=== PATIENT | female | born 1940 | race Caucasian/White ===

== ENCOUNTER 2018-10-01 18:38 | Inpatient (IN) | payer OTHER, MEDICAID ==
[~2018-10-01] VITALS: Ht 160 cm; Wt 52.2 kg
--- NOTE | 2018-10-01 18:38 | NUR ---
PT BIBRA81 FROM HOME FOR SOB X 2DAYS; HX OF COPD. GIVEN 3SPRY NITRO MANAGER MEAT FOR HIGH BP, PT IS AAOX2, NOTED RESPIRATORY DISTRESS, CALLED RT AT BEDSIDE FOR BIPAP SET UP, HOOKED TO MONITOR, KEPT RESTED AND COMFORTABLE, WILL CONTINUE TO MONITOR, EKG DONE BY GULLET SLITTER.
[2018-10-01] MEDS ORDERED: Magnesium 1GM/D5W 100ML PREMIX 200 ML IV ONE (18:44)
--- NOTE | 2018-10-01 18:47 | NUR ---
SEEN AND EXAMINED BY DR. JACKSON.
[2018-10-01] MEDS ORDERED: DEXAMETHASONE SOD PHOSPHATE 10 MG/ML VIAL ONE (19:00)
[2018-10-01] MEDS ORDERED: FUROSEMIDE 40 MG/4 ML VIAL ONE (19:00)
[2018-10-01] MEDS ORDERED: DEXAMETHASONE SOD PHOSPHATE 10 MG/ML VIAL IV ONE (19:00)
[2018-10-01] MEDS ORDERED: ASPIRIN 81 MG TAB.CHEW PO ONE (19:00)
[2018-10-01] MEDS ORDERED: IPRATROPIUM NEB FS 0.5 MG/2.5 ML AMPUL.NEB NEB ONE (19:00)
[2018-10-01] MEDS ORDERED: NITROGLYCERIN PACKET 1 GM PACKET TD ONE (19:00)
[2018-10-01] MEDS ORDERED: AZITHROMYCIN 500 MG in IV D5W 250 ML IV ONE (19:00)
[2018-10-01] MEDS ORDERED: FUROSEMIDE 40 MG/4 ML VIAL IV ONE (19:00)
[2018-10-01] MEDS ORDERED: ALBUTEROL FS 2.5 MG/3 ML VIAL.NEB NEB ONE (19:00)
[2018-10-01] MEDS ORDERED: NITROGLYCERIN PACKET 1 GM PACKET ONE (19:01)
[2018-10-01] MEDS ORDERED: Magnesium 1GM/D5W 100ML PREMIX 100 ML IV ONE (19:01)
[2018-10-01] MEDS ORDERED: ASPIRIN 81 MG TAB.CHEW ONE (19:01)
[2018-10-01 19:05] VITALS: BP 200/122
[2018-10-01] MEDS ORDERED: IPRATROPIUM NEB FS 0.5 MG/2.5 ML AMPUL.NEB ONE (19:10)
[2018-10-01] MEDS ORDERED: ALBUTEROL FS 2.5 MG/3 ML VIAL.NEB ONE (19:10)
--- NOTE | 2018-10-01 19:20 | NUR ---
PHLEB AT BEDSIDE FOR BLOOD DRAW.
--- NOTE | 2018-10-01 19:23 | NUR ---
RADIOLOGY AT BEDSIDE FOR XRAY.
[2018-10-01] MEDS ORDERED: DILTIAZEM HCL IV 125 MG in IV NS 0.9% 100 ML IV PRN (19:30)
[2018-10-01] MEDS ORDERED: DILTIAZEM HCL 50 MG IV IV ONE (19:30)
[2018-10-01] MEDS ORDERED: AZITHROMYCIN 500 MG VIAL ONE (19:40)
[2018-10-01 19:41] LABS: BASOPHILS # (AUTO) 0.1 /CMM (0.0-0.2); BASOPHILS % (AUTO) 0.9 % (0.0-2.0); EOSINOPHILS % (AUTO) 0.7 % (0.0-6.0); HEMATOCRIT 42 % (33-45); HEMOGLOBIN 13.2 g/dL (11.5-14.8); LYMPHOCYTES # (AUTO) 1.6 /CMM (0.8-4.8); LYMPHOCYTES % (AUTO) 18.7 % (20.0-44.0); MEAN CORPUSCULAR HGB CONC 31 g/dl (31.0-36.0); MEAN CORPUSCULAR VOLUME 89 fL (82-100); MONOCYTES # (AUTO) 0.4 /CMM (0.1-1.30); MONOCYTES % (AUTO) 4.5 % (2.0-12.0); NEUTROPHILS # (AUTO) 6.5 /CMM (1.8-8.9); NEUTROPHILS % (AUTO) 75.2 % (43.0-81.0); PLATELET COUNT (AUTO) 250 /CMM (150-450); WHITE BLOOD COUNT (AUTO) 8.6 K/uL (4.3-11.0)
--- NOTE | 2018-10-01 19:50 | NUR ---
RECEIVED REPORT FROM FRANCIA WARNER FOR NIECY
--- NOTE | 2018-10-01 19:50 | NUR ---
REPORT GIVEN TO TIMMY FAUST FOR NIECY.
--- NOTE | 2018-10-01 19:50 | NUR ---
URINE SPECIMEN COLLECTED AND SENT TO LAB.
--- NOTE | 2018-10-01 19:51 | NUR ---
FLU SWAB COLLECTED AND SENT TO LAB
--- NOTE | 2018-10-01 19:55 | NUR ---
VITAL SIGNS STABLE. PER VERBAL MD ORDER, HOLD CARDIZEM ORDER.
[2018-10-01] MEDS ORDERED: CEFTRIAXONE 1GM BAG (ER ONLY) 1 GM/50 ML PIGGYBACK IV ONE (20:00)
[2018-10-01 20:02] LABS: APPEARANCE,URINE Clear (CLEAR); BILIRUBIN,URINE Negative (NEGATIVE); BLOOD, URINE Trace-lysed Ery/uL (NEGATIVE); COLOR,URINE Yellow (YELLOW); KETONES,URINE Negative (NEGATIVE); LEUKOCYTE ESTERASE ,URINE Negative (NEGATIVE); NITRITE, URINE Negative (NEGATIVE); PROTEIN,URINE 100 mg/dl (NEGATIVE); UGLUCOSE Negative (NEGATIVE); UROBILINOGEN,URINE 0.2 EU/dL (0.2)
[2018-10-01 20:07] LABS: CALCIUM, SERUM 10.4 mg/dL (8.5-10.1); CARBON DIOXIDE 27 mmol/L (21-32); CHLORIDE 104 mmol/L (98-107); CREATININE 0.8 mg/dL (0.6-1.3); GLUCOSE 279 mg/dL (74-106); POTASSIUM 4.7 mmol/L (3.5-5.1); SODIUM SERUM 140 mmol/L (136-145); UREA NITROGEN, BLOOD 18 mg/dL (7-18)
[2018-10-01 20:12] LABS: BACTERIA,URINE None seen /HPF (None Seen); RBC,URINE 0-2 /HPF (0-2); SQUAMOUS EPITHELIAL CELL,UR None Seen /HPF (None Seen); WBC,URINE 0-2 /HPF (0-3)
[2018-10-01] MEDS ORDERED: DILTIAZEM HCL 50 MG IV ONE (20:16)
--- NOTE | 2018-10-01 20:20 | NUR ---
PT TACHYCARDIC, MD AWARE. PER VERBAL MD ORDER, ADMINISTERED CARDIZEM 10MG IV PUSH X1 NOW
[2018-10-01 20:21] LABS: ALANINE AMINOTRANSFERASE 24 U/L (12-78); ALBUMIN 3.8 g/dL (3.4-5.0); ALKALINE PHOSPHATASE 121 U/L (46-116); ASPARTATE AMINOTRANSFERASE 26 U/L (15-37); B-TYPE NATRIURETIC PEPTIDE 10070 PG/ML (0-125); BILIRUBIN,DIRECT 0.4 mg/dL (0.0-0.2); BILIRUBIN,TOTAL 1.6 mg/dL (0.2-1.0); TOTAL PROTEIN, SERUM 8.2 g/dL (6.4-8.2)
[2018-10-01] MEDS ORDERED: IV NS 0.9% 500 ML BAG IV ONE (20:30)
--- NOTE | 2018-10-01 20:31 | NUR ---
DAUGHTER CONTACT INFORMATION: RAMIN . ATTEMPTED TO CONTACT, NO ANSWER. MAILBOX FULL. WILL FOLLOW UP
[2018-10-01] MEDS ORDERED: CEFTRIAXONE 1GM BAG (ER ONLY) 50 ML IV ONE (20:49)
--- NOTE | 2018-10-01 20:58 | NUR ---
PT REFUSED ABG BLOOD DRAW, AWARE
[2018-10-01 21:08] VITALS: BP 126/85
--- NOTE | 2018-10-01 21:39 | NUR ---
GAVE REPORT TO VINCENT WARNER FOR NIECY
--- NOTE | 2018-10-01 21:50 | NUR ---
TRANSFERRED PT PER ACLS PROTOCOL
[2018-10-01] MEDS ORDERED: ONDANSETRON HCL/PF 4 MG/2 ML VIAL IVP PRN (22:00)
[2018-10-01] MEDS ORDERED: Z GUARD REMEDY 2 OZ OINT TP PRN (22:00)
[2018-10-01] MEDS ORDERED: ZOLPIDEM TARTRATE 5 MG TABLET PO PRN (22:00)
[2018-10-01] MEDS ORDERED: MAGNESIUM HYDROXIDE 30 ML UDC PO PRN (22:00)
[2018-10-01] MEDS ORDERED: MAG HYDROX/AL HYDROX/SIMETH 30 ML UDC PO PRN (22:00)
[2018-10-01] MEDS ORDERED: HYDROCODONE/APAP 5/325MG 1 EACH TABLET PO PRN (22:00)
[2018-10-01] MEDS ORDERED: ENOXAPARIN SODIUM 40 MG/0.4 ML DISP.SYRIN SQ SCH ×2 (22:00→23:03)
[2018-10-01] MEDS ORDERED: DILTIAZEM HCL 25 MG IV ONE (22:29)
--- NOTE | 2018-10-01 22:45 | NUR ---
RN NOTES PT REFUSED CARDIZEM IV DRIP BC SHE PREFERS PO CARDIZEM PER HER CARDIOLOGISTS. PT BECAME AGITATED W CHARGE NURSE WHEN HE ATTEMPTED TO EXPLAIN THE IMPORTANCE OF THE MEDICATION.
--- NOTE | 2018-10-01 22:52 | NUR ---
POWER CRANE OPERATOR NOTES PT RECEIVED FROM ED W SOB. AOX3. AFIB NOTED ON PORTABLE TRACK LINE MARKER. SALINE LOCKED 20G IV R HAND AND IV BOLUS RUNNING VIA 20G IV L AC. BATH, SKIN ASSESSMENT, AND PICTURES WERE COMPLETED. PT ORIENTED TO ROOM AND PLAN OF CARE. PROVIDED 2L NC.WILL CONTINUE TO MONITOR.
--- NOTE | 2018-10-01 23:20 | NUR ---
RN NOTES LOVENOX WAS GIVEN ORDERED, HOWEVER WE WERE UNABLE TO SCAN BC IT WAS ADMINISTERED AFTER PRESCRIBED TIME. PERMISSION WAS GIVEN BY CHARGE NURSE ED TO ADMINISTER MEDICATION.
[2018-10-01 23:30] VITALS: BP 130/77
[2018-10-01] MEDS ORDERED: IPRATROPIUM NEB FS 0.5 MG/2.5 ML AMPUL.NEB NEB PRN (23:30)
[2018-10-01] MEDS ORDERED: ALBUTEROL FS 2.5 MG/3 ML VIAL.NEB NEB PRN (23:30)
[2018-10-02] VITALS (36 sets, daily range): BP systolic 115–164; BP diastolic 43–102
[2018-10-02 04:46] LABS: BASOPHILS % (AUTO) 0.1 % (0.0-2.0); HEMATOCRIT 36 % (33-45); HEMOGLOBIN 11.5 g/dL (11.5-14.8); LYMPHOCYTES # (AUTO) 0.5 /CMM (0.8-4.8); LYMPHOCYTES % (AUTO) 8.1 % (20.0-44.0); MEAN CORPUSCULAR HGB CONC 32 g/dl (31.0-36.0); MEAN CORPUSCULAR VOLUME 86 fL (82-100); MONOCYTES # (AUTO) 0.1 /CMM (0.1-1.30); MONOCYTES % (AUTO) 1.9 % (2.0-12.0); NEUTROPHILS # (AUTO) 5.9 /CMM (1.8-8.9); NEUTROPHILS % (AUTO) 89.9 % (43.0-81.0); PLATELET COUNT (AUTO) 178 /CMM (150-450); RED BLOOD CELL COUNT(AUTO) 4.13 MIL/uL (4.0-5.2); WHITE BLOOD COUNT (AUTO) 6.5 K/uL (4.3-11.0)
[2018-10-02 05:01] LABS: CALCIUM, SERUM 9.7 mg/dL (8.5-10.1); CARBON DIOXIDE 29 mmol/L (21-32); CHLORIDE 102 mmol/L (98-107); CREATININE 0.7 mg/dL (0.6-1.3); GLUCOSE 215 mg/dL (74-106); MAGNESIUM 1.9 mg/dL (1.8-2.4); PHOSPHORUS 3.1 mg/dL (2.5-4.9); POTASSIUM 3.8 mmol/L (3.5-5.1); SODIUM SERUM 140 mmol/L (136-145); UREA NITROGEN, BLOOD 15 mg/dL (7-18)
[2018-10-02 05:11] LABS: CHOLESTEROL 138 mg/dL (<200); HDL CHOLESTEROL 69 mg/dL (40-60); LDL 68 mg/dL (0-99); THYROID STIMULATING HORMONE 0.304 uIU/mL (0.358-3.74); TRIGLYCERIDES 31 mg/dL (30-150)
--- NOTE | 2018-10-02 06:15 | NUR ---
RN CLOSING NOTES NO SIGNIFICANT CHANGE IN PTS CONDITION. PT REMAINED IN A-FIB OVER NIGHT, SOB IMPROVED. PT REFUSED BIPAP AND CARDIZEM DRIP. ALL NEEDS ANTICIPATED AND MET. PT KEPT SAFE . WILL ENDORSE TO AM RN.
--- NOTE | 2018-10-02 07:30 | NUR ---
RECEIVED CARE OF PATIENT. AWAKE ALERT X3. NO NOTED S/S DISTRESS. STATES BREATHING HAS IMPROVED BUT STILL DIFFICULT FOR HER TO COMPLETE ACTIVITIES. TOLERATING NASAL CANNULA 2L. IV SITES C/D/I/P. PER RN PATIENT REFUSING CARDIZEM GTT; PENDING DR PEOPLES CONSULT. BP STABLE. ALL NEEDS IN REACH. TELE AFIB 90'S-LOW 120'S WITH ACTIVITY. SAFETY, SKIN, ASPIRATION PRECAUTIONS IN PLACE AND WILL MONITOR.
--- NOTE | 2018-10-02 07:48 | NUR ---
DR OCHOA AT BEDSIDE. AWARE PATIENT REFUSAL FOR CARDIZEM IV, CURRENT VS, AND HR 90'S-120'S AFIB. PATIENT STATES SOB IMPROVED BUT STILL HAVING SLIGHT DIFFICULTY WITH ACTIVITY. O2 SAT STABLE ON RA. PER DR DON GALVEZ FOR CARDIAC DIET.
[2018-10-02] MEDS: POTASSIUM CHLORIDE 20 MEQ TAB.PRT.SR PO SCH ×3 (08:32→11:00)
[2018-10-02] MEDS: NITROGLYCERIN PACKET 1 GM PACKET TOP SCH ×2 (08:33→18:33)
[2018-10-02] MEDS: FUROSEMIDE 40 MG/4 ML VIAL IV SCH ×3 (08:33→16:59)
[2018-10-02] MEDS: PANTOPRAZOLE 40 MG TABLET.DR PO SCH (08:53)
[2018-10-02] MEDS ORDERED: ASPIRIN EC 81 MG TABLET.DR PO SCH (09:00)
[2018-10-02] MEDS ORDERED: PANTOPRAZOLE 40 MG VIAL IV SCH (09:00)
--- NOTE | 2018-10-02 10:55 | NUR ---
dr chavira at bedside.
[2018-10-02] MEDS: DIGOXIN INJ 0.5 MG/2 ML AMPUL IV SCH ×3 (11:01→23:51)
--- NOTE | 2018-10-02 11:25 | NUR ---
PT REFUSED ABG. NO RESP. DISTRESS NOTED. PT IS ON 2LPM NASAL CANNULA. AT THE TIME SHE REFUSED THE ABG SHE DID NOT HAVE THE CANNULA ON AND WAS SATURATING 92-95% ON ROOM AIR. TIMMY CASSIDY AWARE OF PT REFUSAL.
[2018-10-02] MEDS: ACETAMINOPHEN 325 MG TABLET PO PRN ×2 (11:46→21:39)
[2018-10-02] MEDS: LACTOBACILLUS RHAMNOSUS GG 1 EACH CAP.SPRINK PO SCH (16:59)
[2018-10-02] MEDS: RIVAROXABAN 10 MG TABLET PO SCH (17:00)
--- NOTE | 2018-10-02 18:37 | NUR ---
PATIENT NOW ALLOWING OFFLOADING OF SACRUM WITH PILLOWS. MEPILEX APPLIED ON SACRUM FOR PROTECTION. PATIENT URINATING APPROX EVERY HOUR AND CONTINUING TO HAVE SKIN AND DERRICK CARE COMPLETED. PER PATIENT REQUEST CALLED DAUGHTER HAYLEE FOR UPDATE ON HER CONDITION. [phone] BUT NO OPTION FOR VOICEMAIL PATIENT AWARE. EDUCATED PATIENT ON SKIN CARE AND IMPORTANCE OF TURNING AND OFFLOADING
--- NOTE | 2018-10-02 18:42 | NUR ---
ALL DUE MEDS GIVEN AND ALL NEEDS MET. PATIENT DENIES SOB NO DIFFICULTY BREATHING AND NO NOTED DISTRESS. ON ROOM AIR O2 SAT STABLE. PATIENT AT TIMES REFUSING TURNING AND OFFLOADING OF SCARUM AND EDUCATED AND STATES UNDERSTANDING. MEPILEX FOR PROTECTION ON SACRUM. CONTINUING FREQUENT SKIN CARE AND DIAPER CHANGE S/T INCREASED URINATION WITH LASIX. PENDING PODIATRY CONSULT TOMORROW PER DR SARABIA S/T TOENAIL GROWTH. SAFETY, SKIN, ASPIRATION PRECAUTIONS IN PLACE AND MONITORED.
[2018-10-02] MEDS ORDERED: AZITHROMYCIN 500 MG in IV D5W 250 ML IV SCH (19:00)
--- NOTE | 2018-10-02 19:45 | NUR ---
LEFT AC 20G IV INFILTRATED AND REMOVED, RIGHT WRIST 20G IV PAINFUL, PT IS REFUSING ALL IV MEDICATIONS AT THIS TIME, SHE SAYS SHE DOES NOT WANT THE IV ANTIBIOTICS
[2018-10-02] MEDS ORDERED: CEFTRIAXONE 1 G in IV D5W 50 ML IV SCH (20:00)
[2018-10-03] VITALS (14 sets, daily range): BP systolic 111–156; BP diastolic 63–94
[2018-10-03 05:02] LABS: BASOPHILS % (AUTO) 0.4 % (0.0-2.0); HEMATOCRIT 37 % (33-45); LYMPHOCYTES # (AUTO) 2.2 /CMM (0.8-4.8); LYMPHOCYTES % (AUTO) 28.4 % (20.0-44.0); MEAN CORPUSCULAR HGB CONC 32 g/dl (31.0-36.0); MEAN CORPUSCULAR VOLUME 87 fL (82-100); MONOCYTES # (AUTO) 0.7 /CMM (0.1-1.30); MONOCYTES % (AUTO) 8.5 % (2.0-12.0); NEUTROPHILS # (AUTO) 4.8 /CMM (1.8-8.9); NEUTROPHILS % (AUTO) 61.7 % (43.0-81.0); PLATELET COUNT (AUTO) 205 /CMM (150-450); WHITE BLOOD COUNT (AUTO) 7.8 K/uL (4.3-11.0)
[2018-10-03 05:16] LABS: ALANINE AMINOTRANSFERASE 22 U/L (12-78); ALBUMIN 3.1 g/dL (3.4-5.0); ALKALINE PHOSPHATASE 88 U/L (46-116); ASPARTATE AMINOTRANSFERASE 18 U/L (15-37); BILIRUBIN,TOTAL 0.9 mg/dL (0.2-1.0); CALCIUM, SERUM 9.7 mg/dL (8.5-10.1); CARBON DIOXIDE 31 mmol/L (21-32); CHLORIDE 104 mmol/L (98-107); CREATININE 0.7 mg/dL (0.6-1.3); GLUCOSE 110 mg/dL (74-106); PHOSPHORUS 3.6 mg/dL (2.5-4.9); POTASSIUM 4.3 mmol/L (3.5-5.1); SODIUM SERUM 141 mmol/L (136-145); UREA NITROGEN, BLOOD 27 mg/dL (7-18)
[2018-10-03] MEDS: NITROGLYCERIN PACKET 1 GM PACKET TOP SCH (06:58)
--- NOTE | 2018-10-03 07:35 | NUR ---
ICU/RN: Dr Jacques at bedside; updated on pt status, informed of pt non-compliance; pt refuses to take IV meds, insert new IV. Currently a-fib 120's on monitor. Per okay to downgrade to med/surg.
[2018-10-03] MEDS: DILTIAZEM HCL CD 240 MG PO SCH (08:14)
[2018-10-03] MEDS: LACTOBACILLUS RHAMNOSUS GG 1 EACH CAP.SPRINK PO SCH ×2 (08:14→16:16)
[2018-10-03] MEDS: FUROSEMIDE 20 MG TABLET PO SCH (08:14)
[2018-10-03] MEDS: PANTOPRAZOLE 40 MG TABLET.DR PO SCH (08:14)
--- NOTE | 2018-10-03 08:40 | NUR ---
WOUND CARE CONSULT: PT PRESENTS WITH SACRAL SCARRING, RT INDEX FINGER DEFORMITY, RT 3RD FINGER INTACT BLISTER AND SCALY SKIN ON LOWER LEGS, PRESENT ON ADMISSION. PT NOTED TO HAVE LONG TOENAILS. PT STATES THAT A SENIOR CLIMATE ADVISOR IS COMING TO SEE HER IN 2 HOURS. PT REPORTS THAT SHE BURNED HER RT 3RD FINGER WHILE MAKING TOAST IN HER OVEN AT HOME. PT STATES THAT BLISTER IS NOT PAINFUL. RECOMMENDATIONS MADE FOR WOUND CARE AND SKIN PROTECTION. DISCUSSED WITH NURSING STAFF. CURRENT SIMEON SCORE IS 17. WILL SEE PRN. JENNINGS IN AGREEMENT WITH PLAN OF CARE. Addendum: 10/03/18 at 0843 by RAMA VILLEGAS WNDNU Amended: Links added.
[2018-10-03] MEDS ORDERED: MINERAL OIL/PETROLATUM,WHITE 120 GM JAR TP PRN (09:00)
--- NOTE | 2018-10-03 10:28 | NUR ---
ICU/RN: Called med/surg for report, spoke with TIMMY Jensen.
--- NOTE | 2018-10-03 10:45 | NUR ---
ICU/RN: Pt transferred to med/surg 2 in stable condition, breathing even and unlabored, no distress noted. IV HL patent and intact. Dressing on R index finger C/D/I. Belongings and chart transferred with patient. Received at bedside by primary RN.
--- NOTE | 2018-10-03 11:00 | NUR ---
MS RN NOTES PATIENT TRANSFERRED FROM ICU, RM 253, REPORT RECEIVED FROM TIMMY TAVARES. PATIENT ARRIVED VIA WHEELCHAIR IN STABLE CONDITION. ALERT AND ORIENTED X 4, VERBALLY RESPONSIVE AND RESPONDS TO VERBAL AND TACTILE STIMULI. NO ACUTE DISTRESS. DENIES ANY PAIN OR DISCOMFORT. NO CHANGES IN LOC NOTED AT THIS TIME. DRESSING RIGHT FINGER INTACT, NO DRAINAGE OR BLEEDING NOTED. PATIENT ORIENTED TO UNIT, STAFF, PHYSICIAN, PLAN OF CARE AND VERBALIZED UNDERSTANDING. DR. SARABIA AWARE. WILL CONTINUE TO MONITOR
[2018-10-03] MEDS ORDERED: GUAIFENESIN/D-METHORPHAN HB 5 ML UDC PO PRN (12:00)
--- NOTE | 2018-10-03 12:30 | NUR ---
MS RN NOTES PATIENT SEEN AND EXAMINED BY DR. DOMENICA SOTO. WOUND TX DONE ON RIGHT 3RD FINGER, PATIENT TOLERATED PROCEDURE WELL. DENIES ANY PAIN OR DISCOMFORT. PLACED XEROFORM THEN COVERED SITE WITH DRY DRESSING. NO DRAINAGE OR BLEEDING NOTED. WILL CONTINUE TO MONITOR
[2018-10-03] MEDS: GUAIFENESIN LA 600 MG TABLET.SA PO SCH ×2 (12:32→21:00)
--- NOTE | 2018-10-03 13:20 | NUR ---
MS RN NOTES DR. CALIX (PODIATRY) PRESENT AT UNIT TO SEE PATIENT BUT PATIENT REFUSED. STATED SHE WOULD PREFER TO HAVE DR. CALIX COME BACK TOMORROW. RISKS AND BENEFITS EXPLAINED BUT TO NO AVAIL. PATIENT STRONGLY INSISTED TO NOT BE SEEN TODAY. WILL CONTINUE TO MONITOR
[2018-10-03] MEDS: RIVAROXABAN 10 MG TABLET PO SCH (16:16)
--- NOTE | 2018-10-03 18:56 | NUR ---
MS RN NOTES PATIENT RESTING INSIDE ROOM. AWAKE, ALERT AND ORIENTED, VERBALLY RESPONSIVE AND RESPONDS TO VERBAL AND TACTILE STIMULI. BREATHING EVEN AND UNLABORED. NO ACUTE DISTRESS AT THIS TIME. ALL NURSING NEEDS ATTENDED AND MET. PATIENT KEPT CLEAN, DRY AND COMFORTABLE. WILL ENDORSE TO INCOMING SHIFT FOR NIECY. BED LOCKED AND IN LOW POSITION. BILATERAL UPPER SIDE RAILS UP AND LOCKED. CALL LIGHT WITHIN EASY REACH
--- NOTE | 2018-10-03 19:40 | NUR ---
RN NOTES RECEIVED REPORT FROM [facility] TIMMY DURON. FOUND Pt AWAKE, RESTING IN BED. Pt IS A/OX4, VERBAL ABLE TO MAKE NEEDS KNOWN. NO S/S OF ACUTE DISTRESS OR SOB NOTED. RESPIRATIONS ARE EVEN AND UNLABORED. IV ACCESS ON R WRIST #20G, SL. SAFETY MEASURES IN PLACE. BED LOW, LOCKED, HOB ELEVATED, SIDE RAILS UP, CALL LIGHT AND BEDSIDE TABLE WITHIN REACH. WILL CONTINUE TO MONITOR Pt's CONDITION AND SAFETY THROUGHOUT THE NIGHT.
[2018-10-04 06:19] LABS: BASOPHILS # (AUTO) 0.1 /CMM (0.0-0.2); BASOPHILS % (AUTO) 0.7 % (0.0-2.0); EOSINOPHILS % (AUTO) 3.4 % (0.0-6.0); HEMATOCRIT 38 % (33-45); HEMOGLOBIN 12.1 g/dL (11.5-14.8); LYMPHOCYTES # (AUTO) 1.8 /CMM (0.8-4.8); LYMPHOCYTES % (AUTO) 22.9 % (20.0-44.0); MEAN CORPUSCULAR HGB CONC 32 g/dl (31.0-36.0); MEAN CORPUSCULAR VOLUME 88 fL (82-100); MONOCYTES # (AUTO) 0.6 /CMM (0.1-1.30); MONOCYTES % (AUTO) 7.6 % (2.0-12.0); NEUTROPHILS # (AUTO) 5.3 /CMM (1.8-8.9); NEUTROPHILS % (AUTO) 65.4 % (43.0-81.0); PLATELET COUNT (AUTO) 236 /CMM (150-450); RED BLOOD CELL COUNT(AUTO) 4.34 MIL/uL (4.0-5.2); WHITE BLOOD COUNT (AUTO) 8.1 K/uL (4.3-11.0)
[2018-10-04] MEDS: ACETAMINOPHEN 325 MG TABLET PO PRN ×2 (06:34→15:01)
[2018-10-04 06:44] LABS: ALANINE AMINOTRANSFERASE 22 U/L (12-78); ALKALINE PHOSPHATASE 89 U/L (46-116); ASPARTATE AMINOTRANSFERASE 21 U/L (15-37); BILIRUBIN,TOTAL 0.6 mg/dL (0.2-1.0); CALCIUM, SERUM 9.5 mg/dL (8.5-10.1); CARBON DIOXIDE 28 mmol/L (21-32); CHLORIDE 105 mmol/L (98-107); CREATININE 0.5 mg/dL (0.6-1.3); GLUCOSE 135 mg/dL (74-106); PHOSPHORUS 3.2 mg/dL (2.5-4.9); POTASSIUM 3.8 mmol/L (3.5-5.1); SODIUM SERUM 141 mmol/L (136-145); TOTAL PROTEIN, SERUM 6.6 g/dL (6.4-8.2); UREA NITROGEN, BLOOD 21 mg/dL (7-18)
--- NOTE | 2018-10-04 06:45 | NUR ---
RN CLOSING NOTES NO SIGNIFICANT CHANGES IN Pt's CONDITION. Pt REMAINS STABLE AT THIS TIME. Pt AWAKE, RESTING IN BED, WATCHING TV. RESPIRATIONS EVEN AND UNLABORED. NO S/S OF ACUTE DISTRESS OR SOB NOTED DURING THE NIGHT. ALL NEEDS MET AND ATTENDED TO. SAFETY MEASURES IN PLACE. BED LOW, LOCKED, HOB ELEVATED, SIDE RAILS UP, CALL LIGHT AND BEDSIDE TABLE WITHIN REACH. WILL ENDORSE TO DAYSHIFT RN FOR Pt's NIECY.
[2018-10-04 08:00] VITALS: BP 116/74
--- NOTE | 2018-10-04 08:00 | NUR ---
MS RN AM NOTES PT ALERT AND ORIENTED X 4, VERBALLY RESPONSIVE AND RESPONDS TO VERBAL AND TACTILE STIMULI. NO ACUTE DISTRESS. DENIES ANY PAIN OR DISCOMFORT.PT AMBULATING IN THE HALLWAY WITH STEADY GAIT BY HERSELF SEVERAL TIMES. NO CHANGES IN LOC.NO SOB ON ROOM AIR -WITH O2 SAT 99%.DRESSING RIGHT FINGER INTACT, NO DRAINAGE OR BLEEDING NOTED. PATIENT VERBALIZES NEEDS. NEEDS ATTENDED ALWAYS.WILL CONTINUE TO MONITOR.CALL LIGHT PLACED WITHIN REACH.
[2018-10-04] MEDS: LACTOBACILLUS RHAMNOSUS GG 1 EACH CAP.SPRINK PO SCH ×2 (09:00→17:13)
[2018-10-04] MEDS: PANTOPRAZOLE 40 MG TABLET.DR PO SCH (09:01)
[2018-10-04] MEDS: DILTIAZEM HCL CD 240 MG PO SCH (09:01)
[2018-10-04] MEDS: GUAIFENESIN LA 600 MG TABLET.SA PO SCH ×2 (09:01→20:51)
[2018-10-04] MEDS: FUROSEMIDE 20 MG TABLET PO SCH (09:01)
--- NOTE | 2018-10-04 10:00 | NUR ---
PT AMBULATED WITH P.T. WITH 97% O2 SAT ROOM AIR DENYING ANY SOB/DISTRESS/DISCOMFORT.
--- NOTE | 2018-10-04 14:55 | NUR ---
SEEN BY DR HOWARD (PODIATRY) AND TRIMMED PT'S TOENAILS.PT TOLERATED WELL.SKIN REMAINS INTACT.
[2018-10-04 16:00] VITALS: BP 144/95
[2018-10-04] MEDS: RIVAROXABAN 10 MG TABLET PO SCH (17:14)
--- NOTE | 2018-10-04 19:13 | NUR ---
PT IN BED AMBULATING IN THE HALLWAY-IN AND OUT OF HER ROOM WITH NO C/O SOB.O2 SAT 97% ON ROOM AIR.WITH GOOD APPETITE FOR SNACKS.CONSUMED 4 JELLOS AND SNACKS.CALL LIGHT PLACED WITHIN REACH.
--- NOTE | 2018-10-04 19:15 | NUR ---
MS RN NOTE RECEIVED PT IN STABLE CONDITION A&O X4, ABLE TO MAKE NEEDS KNOWN. PT WITH STABLE GAIT. ALL CURRENT NEEDS MET. SAFETY MEASURES IN PLACE: BED LOW, LOCKED, UPPER RAILS UP, AND CALL LIGHT WITHIN REACH. WILL CONT TO MONITOR.
[2018-10-04 20:00] VITALS: BP 122/69
--- NOTE | 2018-10-05 06:22 | NUR ---
MS RN NOTE PT IN STABLE CONDITION A&O X4, ABLE TO MAKE NEEDS KNOWN. PT WITH STABLE GAIT. ALL CURRENT NEEDS MET. SAFETY MEASURES IN PLACE: BED LOW, LOCKED, UPPER RAILS UP, AND CALL LIGHT WITHIN REACH. WILL CONT TO MONITOR AND ENDORSE TO NEXT SHIFT FOR NIECY.
[2018-10-05 07:28] LABS: CALCIUM, SERUM 9.8 mg/dL (8.5-10.1); CARBON DIOXIDE 29 mmol/L (21-32); CHLORIDE 106 mmol/L (98-107); CREATININE 0.6 mg/dL (0.6-1.3); GLUCOSE 114 mg/dL (74-106); MAGNESIUM 2.1 mg/dL (1.8-2.4); PHOSPHORUS 3.1 mg/dL (2.5-4.9); POTASSIUM 3.9 mmol/L (3.5-5.1); SODIUM SERUM 143 mmol/L (136-145); UREA NITROGEN, BLOOD 18 mg/dL (7-18)
[2018-10-05 07:38] LABS: BASOPHILS % (AUTO) 0.4 % (0.0-2.0); EOSINOPHILS % (AUTO) 4.7 % (0.0-6.0); HEMATOCRIT 39 % (33-45); HEMOGLOBIN 12.4 g/dL (11.5-14.8); LYMPHOCYTES # (AUTO) 2.3 /CMM (0.8-4.8); LYMPHOCYTES % (AUTO) 34.1 % (20.0-44.0); MEAN CORPUSCULAR HGB CONC 32 g/dl (31.0-36.0); MEAN CORPUSCULAR VOLUME 87 fL (82-100); MONOCYTES # (AUTO) 0.6 /CMM (0.1-1.30); MONOCYTES % (AUTO) 8.4 % (2.0-12.0); NEUTROPHILS # (AUTO) 3.6 /CMM (1.8-8.9); NEUTROPHILS % (AUTO) 52.4 % (43.0-81.0); PLATELET COUNT (AUTO) 269 /CMM (150-450); RED BLOOD CELL COUNT(AUTO) 4.48 MIL/uL (4.0-5.2); WHITE BLOOD COUNT (AUTO) 6.9 K/uL (4.3-11.0)
[2018-10-05 08:00] VITALS: BP 121/78
[2018-10-05 08:49] VITALS: BP 121/78
[2018-10-05] MEDS: LACTOBACILLUS RHAMNOSUS GG 1 EACH CAP.SPRINK PO SCH (08:49)
[2018-10-05] MEDS: DILTIAZEM HCL CD 240 MG PO SCH (08:49)
[2018-10-05] MEDS: GUAIFENESIN LA 600 MG TABLET.SA PO SCH (08:49)
[2018-10-05] MEDS: ACETAMINOPHEN 325 MG TABLET PO PRN (08:49)
[2018-10-05] MEDS: PANTOPRAZOLE 40 MG TABLET.DR PO SCH (08:50)
[2018-10-05] MEDS ORDERED: FUROSEMIDE 20 MG TABLET PO SCH (09:00)
[2018-10-05] MEDS ORDERED: DILT240C88 PO (09:56)
[2018-10-05] MEDS ORDERED: RIVA10TA PO (09:56)
[2018-10-05] MEDS ORDERED: FURO20TA4 PO (09:56)
--- NOTE | 2018-10-05 15:30 | NUR ---
DISCHARGED PT HOME VIA TAXI VOUCHER.WITH STABLE V/S.IV H/L REMOVED TO RT WRIST WITH NO BLEEDING NOTED.DENIES SOB OR DISCOMFORT.INFORMED PT'S DAUGHTER OF THE DISCHARGE.
== END 2018-10-05 15:30 | disposition home or self-care (01) | DRG 871 ==
LOC: ER 18:43 → ICU 21:18 → MEDSG2 10-03 10:38
PROVIDERS: ADMIT Hospitalist; ATTEND Student in an Organized Health Care Education/Training Program
PROC: 5A09357 Assistance with Respiratory Ventilation, Less than 24 Consecutive Hours, Continuous Positive Airway Pressure (ICD-10-PCS; principal; 2018-10-01)
DX: A41.9 Sepsis, unspecified organism (principal); J96.01 Acute respiratory failure with hypoxia; I21.A1 Myocardial infarction type 2; I50.43 Acute on chronic combined systolic (congestive) and diastolic (congestive) heart failure; J44.1 Chronic obstructive pulmonary disease with (acute) exacerbation; F17.210 Nicotine dependence, cigarettes, uncomplicated; L60.1 Onycholysis; L60.3 Nail dystrophy; L85.3 Xerosis cutis; Z91.14 Patient's other noncompliance with medication regimen; J84.10 Pulmonary fibrosis, unspecified; I11.0 Hypertensive heart disease with heart failure; Z71.6 Tobacco abuse counseling; L98.8 Other specified disorders of the skin and subcutaneous tissue; S60.422A Blister (nonthermal) of right middle finger, initial encounter; X08.8XXA Exposure to other specified smoke, fire and flames, initial encounter; Y93.9 Activity, unspecified; Y92.009 Unspecified place in unspecified non-institutional (private) residence as the place of occurrence of the external cause; I48.91 Unspecified atrial fibrillation; R65.20 Severe sepsis without septic shock
CPT/HCPCS: 36415; 71045-TC; 71250-TC; 80048-TC; 80053-TC; 80061-TC; 80076-TC; 81000-TC; 82962-TC; 83605-TC; 83735-TC; 83880; 84100-TC; 84439-TC; 84443-TC; 84484-TC; 85025-TC; 85730-TC; 87040-TC; 87081-TC; 87086-TC; 87400; 93307-TC; 94799-TC; A6402; G0378; J0456; J0696; J1100; J1160; J1650; J1940; J3475; J3490; J7040; J7050; J7060

== ENCOUNTER 2018-12-28 06:04 | Inpatient (IN) | payer OTHER, MEDICAID ==
[~2018-12-28] VITALS: Ht 157.5 cm; Wt 54.9 kg
[~2018-12-28 06:04] MED LIST: DILT240C88 PO; FURO20TA4 PO; RIVA10TA PO
--- NOTE | 2018-12-28 06:08 | NUR ---
VICKI RA FROM HOME. AAOX4. AMBULATORY WITH ASSISTANCE. C/O SOB X 1 WEEK WHICH STARTED TO GOT WORST SINCE YESTERDAY PER PT. LUNG SOUNDS ARE CLEAR. NO N/V. DENIES CP. PT TO ER BED 2. PLACED ON MONITOR, NOTED PT ON AFIB. MD AT BEDSIDE. AWAITING FOR ORDERS.
--- NOTE | 2018-12-28 06:10 | NUR ---
PLACE ON 02 VIA NC @ 2LPM.
--- NOTE | 2018-12-28 06:15 | NUR ---
IV LINE OBTAINED ON L AC 20G. BLOOD DRAWN SENT TO LAB
--- NOTE | 2018-12-28 06:20 | NUR ---
TECH AT BEDSIDE FOR EKG
--- NOTE | 2018-12-28 06:22 | NUR ---
XRAY AT BEDSIDE
[2018-12-28] MEDS ORDERED: ASPIRIN 81 MG TAB.CHEW PO ONE (06:30)
[2018-12-28] MEDS ORDERED: NITROGLYCERIN PACKET 1 GM PACKET TD ONE (06:30)
[2018-12-28] MEDS ORDERED: FUROSEMIDE 40 MG/4 ML VIAL IV ONE (06:30)
[2018-12-28 06:39] LABS: BASOPHILS # (AUTO) 0.1 /CMM (0.0-0.2); BASOPHILS % (AUTO) 1.2 % (0.0-2.0); HEMATOCRIT 43 % (33-45); HEMOGLOBIN 13.6 g/dL (11.5-14.8); LYMPHOCYTES # (AUTO) 1.9 /CMM (0.8-4.8); LYMPHOCYTES % (AUTO) 32.2 % (20.0-44.0); MEAN CORPUSCULAR HGB CONC 32 g/dl (31.0-36.0); MEAN CORPUSCULAR VOLUME 86 fL (82-100); MONOCYTES # (AUTO) 0.3 /CMM (0.1-1.30); MONOCYTES % (AUTO) 5.5 % (2.0-12.0); NEUTROPHILS # (AUTO) 3.5 /CMM (1.8-8.9); NEUTROPHILS % (AUTO) 57.1 % (43.0-81.0); PLATELET COUNT (AUTO) 253 /CMM (150-450); RED BLOOD CELL COUNT(AUTO) 4.95 MIL/uL (4.0-5.2); WHITE BLOOD COUNT (AUTO) 6.1 K/uL (4.3-11.0)
[2018-12-28 07:08] LABS: ALANINE AMINOTRANSFERASE 21 U/L (12-78); ALBUMIN 3.9 g/dL (3.4-5.0); ALKALINE PHOSPHATASE 103 U/L (46-116); ASPARTATE AMINOTRANSFERASE 25 U/L (15-37); B-TYPE NATRIURETIC PEPTIDE 9294 PG/ML (0-125); BILIRUBIN,DIRECT 0.3 mg/dL (0.0-0.2); BILIRUBIN,TOTAL 1.9 mg/dL (0.2-1.0); CALCIUM, SERUM 9.9 mg/dL (8.5-10.1); CARBON DIOXIDE 28 mmol/L (21-32); CHLORIDE 104 mmol/L (98-107); CREATININE 0.6 mg/dL (0.6-1.3); GLUCOSE 161 mg/dL (74-106); POTASSIUM 4.1 mmol/L (3.5-5.1); SODIUM SERUM 140 mmol/L (136-145); TOTAL PROTEIN, SERUM 7.5 g/dL (6.4-8.2); UREA NITROGEN, BLOOD 20 mg/dL (7-18)
--- NOTE | 2018-12-28 08:29 | NUR ---
report given to Franci WARNER for niels.
[2018-12-28] MEDS ORDERED: FUROSEMIDE 20 MG TABLET PO SCH (09:00)
[2018-12-28] MEDS ORDERED: FUROSEMIDE 40 MG/4 ML VIAL IV SCH (09:00)
[2018-12-28] MEDS ORDERED: ASPI-1169 PO (09:54)
[2018-12-28] MEDS ORDERED: FAMO20TA8 PO (09:54)
[2018-12-28] MEDS ORDERED: CARV12.52 PO (09:54)
[2018-12-28] MEDS ORDERED: TRIA80OI TP (09:54)
[2018-12-28] MEDS ORDERED: DIGO125T PO (09:54)
[2018-12-28] MEDS ORDERED: LISI2.5T2 PO (09:54)
[2018-12-28] MEDS ORDERED: ACET-73 PO (09:54)
--- NOTE | 2018-12-28 11:09 | NUR ---
wheeled patient via gurney accompanied by EMT and rn in no apparent distress noted, Melisa RN at bedside to assume care.
--- NOTE | 2018-12-28 11:10 | NUR ---
REAL ESTATE SITE ANALYST NOTES RECEIVED PT FROM Zahira BYRNES RN VIA BARI, PT IS AWAKE, ALERT AND ORIENTED, NO COMPLAINT OF PAIN, VERBALLY RESPONSIVE, NOT IN DISTRESS, ON O2 AT 2LPM VIA NASAL CANULA, ASSISTED TO BED, MADE COMFORTABLE, ROOM SET UP ORIENTATION PROVIDED TO PT, VERBALIZED UNDERSTANDING, CALL LIGHT PLACED WITHIN REACH, SEEN AND EXAMINED BY DR. DESIR, PLAN OF CARE DISCUSSED WITH PT, VERBALIZED UNDERSTANDING, ADMITTING ORDERS RECEIVED AND CARRIED OUT.
[2018-12-28] MEDS ORDERED: Z GUARD REMEDY 2 OZ OINT TP PRN (11:30)
[2018-12-28] MEDS ORDERED: HYDROCODONE/APAP 5/325MG 1 EACH TABLET PO PRN (11:30)
[2018-12-28] MEDS ORDERED: ONDANSETRON HCL/PF 4 MG/2 ML VIAL IVP PRN (11:30)
[2018-12-28] MEDS ORDERED: ZOLPIDEM TARTRATE 5 MG TABLET PO PRN (11:30)
[2018-12-28] MEDS ORDERED: MAGNESIUM HYDROXIDE 30 ML UDC PO PRN (11:30)
[2018-12-28] MEDS ORDERED: MAG HYDROX/AL HYDROX/SIMETH 30 ML UDC PO PRN (11:30)
[2018-12-28] MEDS: DILTIAZEM HCL CD 240 MG PO SCH (11:38)
[2018-12-28] MEDS: FUROSEMIDE 40 MG/4 ML VIAL IV SCH ×3 (11:38→18:32)
--- NOTE | 2018-12-28 13:14 | NUR ---
GASSER MACHINE OPERATOR NOTES SPOKE WITH PT'S DAUGHTER MITCH OVER THE PHONE, PLAN OF CARE DISCUSSED WITH HER, VERBALIZED UNDERSTANDING, CAP MACHINE OPERATOR PREM WILL FOLLOW UP WITH PT'S DAUGHTER, PT INFORMED.
--- NOTE | 2018-12-28 14:27 | NUR ---
TEACHER PRIVATE NOTES SKIN ASSESSMENT DONE, PHOTOS TAKEN, PT REFUSED SACRAL AND PERINELA AREA SKIN CHECK.
[2018-12-28 16:32] VITALS: BP 115/70
[2018-12-28] MEDS: RIVAROXABAN 10 MG TABLET PO SCH (17:13)
[2018-12-28] MEDS: TRIAMCINOLONE ACETONIDE 0.1% CR 15 GM TUBE TP SCH (17:31)
--- NOTE | 2018-12-28 18:34 | NUR ---
CLAM SORTER NOTES PT IN BED, AWAKE, ALERT AND ORIENTED, NO COMPLAINT OF PAIN, NOT IN DISTRESS, SKIN TREATMENTS DONE, ASSISTED WITH MEALS, ASSISTED TO BATHROOM NEEDED, CALL LIGHT WITHIN REACH, TOLERATES CURRENT DIET WELL, PT STILL REFUSED FOR SACRAL AND PERINEAL AREA SKIN CHECKS, ALL NEEDS ATTENDED.
--- NOTE | 2018-12-28 19:43 | NUR ---
TELE/RN OPENING NOTES RECEIVED PATIENT IN BED, AWAKE, ALERT, ABLE TO VERBALIZE NEEDS, DISCUSSED CONCERNS, MONITORED FOR SOB, TELE ON AFIB BUT CONTROLLED, AMBULATORY REQUIRE ASSISTANCE, CAN AMBULATE WITH SUPERVISION. WILL MONITOR ANY CHANGES. BELONGINGS WITHIN REACH, BED LOCKED, CALL LIGHTS WITHIN REACH, WILL MONITOR.
[2018-12-28] MEDS: ACETAMINOPHEN 325 MG TABLET PO PRN (20:42)
--- NOTE | 2018-12-28 21:00 | NUR ---
tele/rn notes REPORTED PULSE RATE WHEN ASLEEP GOES LOW TO 36 TO 38 AND WHEN AWAKE AT 97, ASYMPTOMATIC, PATIENT ABLE TO VERBALIZE NEEDS.
[2018-12-28 21:53] VITALS: BP 116/68
[2018-12-29 00:09] VITALS: BP 123/74
[2018-12-29 04:06] VITALS: BP 110/60
--- NOTE | 2018-12-29 06:45 | NUR ---
326-2 TELE/RN NOTED PATIENT SLEPT INTERMITENTLY, ABLE TO VERBALIZE NEEDS, ALERT, AWAKE, REQUIRE ASSISTANCE TO BSC FOR SAFETY, MONITORED FOR ANY PAIN. BED LOCKED, CALL LIGHTS WITHIN REACH, PROVIDED FLUIDS AND SNACKS, WILL ENDORSE TO AM RN FOR NIECY.
[2018-12-29 07:00] VITALS: BP 125/73
--- NOTE | 2018-12-29 07:15 | NUR ---
Tele/RN - Assessment Patient awake, A/O x 4, denies chest pain at this time, no apparent distress, tolerating room air, tele shows A.Fib controlled. Labs reviewed, noted with low potassium and magnesium level. CXR showed increasing edema and min pleural effusion, on oral Lasix. Fall and aspiration precautions maintained. All needs attended and met. Discussed plan of care with patient. Will continue with current medical management.
[2018-12-29 07:45] LABS: BASOPHILS % (AUTO) 0.6 % (0.0-2.0); EOSINOPHILS % (AUTO) 4.9 % (0.0-6.0); HEMATOCRIT 39 % (33-45); HEMOGLOBIN 12.6 g/dL (11.5-14.8); LYMPHOCYTES # (AUTO) 1.7 /CMM (0.8-4.8); LYMPHOCYTES % (AUTO) 29.8 % (20.0-44.0); MEAN CORPUSCULAR HGB CONC 32 g/dl (31.0-36.0); MEAN CORPUSCULAR VOLUME 86 fL (82-100); MONOCYTES # (AUTO) 0.5 /CMM (0.1-1.30); MONOCYTES % (AUTO) 8.8 % (2.0-12.0); NEUTROPHILS # (AUTO) 3.1 /CMM (1.8-8.9); NEUTROPHILS % (AUTO) 55.9 % (43.0-81.0); PLATELET COUNT (AUTO) 209 /CMM (150-450); RED BLOOD CELL COUNT(AUTO) 4.53 MIL/uL (4.0-5.2); WHITE BLOOD COUNT (AUTO) 5.6 K/uL (4.3-11.0)
[2018-12-29 07:57] LABS: ALANINE AMINOTRANSFERASE 15 U/L (12-78); ALBUMIN 3.1 g/dL (3.4-5.0); ALKALINE PHOSPHATASE 86 U/L (46-116); ASPARTATE AMINOTRANSFERASE 16 U/L (15-37); B-TYPE NATRIURETIC PEPTIDE 2651 PG/ML (0-125); BILIRUBIN,TOTAL 1.1 mg/dL (0.2-1.0); CALCIUM, SERUM 9.5 mg/dL (8.5-10.1); CARBON DIOXIDE 31 mmol/L (21-32); CHLORIDE 104 mmol/L (98-107); CREATININE 0.6 mg/dL (0.6-1.3); GLUCOSE 106 mg/dL (74-106); MAGNESIUM 1.7 mg/dL (1.8-2.4); POTASSIUM 3.3 mmol/L (3.5-5.1); SODIUM SERUM 142 mmol/L (136-145); TOTAL PROTEIN, SERUM 6.3 g/dL (6.4-8.2); UREA NITROGEN, BLOOD 28 mg/dL (7-18)
--- NOTE | 2018-12-29 08:00 | NUR ---
Tele/RN - s/b Dr. Jacques Seen and examined by Dr. Jacques with orders, dc tele monitoring, transfer to med-surg, give Lasix 40 mg IVP x 3 doses, replete electrolytes.
[2018-12-29 08:03] LABS: CHOLESTEROL 127 mg/dL (<200); HDL CHOLESTEROL 55 mg/dL (40-60); LDL 68 mg/dL (0-99); TRIGLYCERIDES 61 mg/dL (30-150)
[2018-12-29] MEDS: Magnesium 1GM/D5W 100ML PREMIX 100 ML IV SCH ×2 (08:26→09:29)
[2018-12-29] MEDS: DILTIAZEM HCL CD 240 MG PO SCH (08:27)
[2018-12-29] MEDS: TRIAMCINOLONE ACETONIDE 0.1% CR 15 GM TUBE TP SCH ×2 (08:27→16:32)
[2018-12-29] MEDS: POTASSIUM CHLORIDE 20 MEQ TAB.PRT.SR PO SCH ×3 (08:27→11:44)
[2018-12-29] MEDS: FUROSEMIDE 40 MG/4 ML VIAL IV SCH ×3 (08:28→16:30)
[2018-12-29] MEDS: ACETAMINOPHEN 325 MG TABLET PO PRN ×2 (13:00→21:03)
[2018-12-29] MEDS: RIVAROXABAN 10 MG TABLET PO SCH (16:31)
[2018-12-29] MEDS: ALBUTEROL FS 2.5 MG/3 ML VIAL.NEB NEB SCH ×2 (16:44→20:43)
[2018-12-29] MEDS: IPRATROPIUM NEB FS 0.5 MG/2.5 ML AMPUL.NEB NEB SCH ×2 (16:44→20:43)
--- NOTE | 2018-12-29 18:26 | NUR ---
Tele/RN - End of shift summary No significant change in condition seen. Lasix 40 mg IVP x 3 doses given, diuresing well, magnesium and potassium replacement given as ordered. No fall/injury this shift. Will endorse to night nurse accordingly.
--- NOTE | 2018-12-29 19:20 | NUR ---
RN OPEN NOTES RECEIVED PATIENT AWAKE IN BED. A/OX3. NO SIGNS OF DISTRESS OR DISCOMFORT. BREATHING EVEN AND UNLABORED. IV ACCESS IN LAC, PATENT AND INTACT, NO SIGNS OF REDNESS OR INFILTRATION. BED IN LOW LOCKED POSITION. PATIENT ADVISED TO CALL FOR ASSISTANCE. CALL LIGHT WITHIN REACH. WILL CONTINUE TO MONITOR.
[2018-12-29 20:00] VITALS: BP 103/62
[2018-12-30] MEDS: ACETAMINOPHEN 325 MG TABLET PO PRN ×2 (06:01→21:42)
--- NOTE | 2018-12-30 06:56 | NUR ---
RN CLOSING NOTES PATIENT AWAKE IN BED. A/OX3. NO SIGNS OF DISTRESS OR DISCOMFORT. BREATHING EVEN AND UNLABORED. IV ACCESS IN LAC, PATENT AND INTACT, NO SIGNS OF REDNESS OR INFILTRATION. ALL NEEDS MET. NO SIGNIFICANT CHANGES THROUGH THE NIGHT. BED IN LOW LOCKED POSITION WITH SIDE RAILS X3. PATIENT ADVISED TO CALL FOR ASSISTANCE. CALL LIGHT WITHIN REACH. WILL ENDORSE TO AM SHIFT FOR NIECY.
[2018-12-30 07:06] LABS: BASOPHILS % (AUTO) 0.6 % (0.0-2.0); EOSINOPHILS % (AUTO) 3.8 % (0.0-6.0); HEMATOCRIT 39 % (33-45); HEMOGLOBIN 12.6 g/dL (11.5-14.8); LYMPHOCYTES # (AUTO) 1.4 /CMM (0.8-4.8); LYMPHOCYTES % (AUTO) 20.4 % (20.0-44.0); MEAN CORPUSCULAR HGB CONC 32 g/dl (31.0-36.0); MEAN CORPUSCULAR VOLUME 85 fL (82-100); MONOCYTES # (AUTO) 0.6 /CMM (0.1-1.30); MONOCYTES % (AUTO) 9.5 % (2.0-12.0); NEUTROPHILS # (AUTO) 4.4 /CMM (1.8-8.9); NEUTROPHILS % (AUTO) 65.7 % (43.0-81.0); PLATELET COUNT (AUTO) 212 /CMM (150-450); RED BLOOD CELL COUNT(AUTO) 4.58 MIL/uL (4.0-5.2); WHITE BLOOD COUNT (AUTO) 6.7 K/uL (4.3-11.0)
[2018-12-30 07:22] LABS: ALANINE AMINOTRANSFERASE 18 U/L (12-78); ALBUMIN 3.3 g/dL (3.4-5.0); ALKALINE PHOSPHATASE 89 U/L (46-116); ASPARTATE AMINOTRANSFERASE 17 U/L (15-37); CALCIUM, SERUM 9.4 mg/dL (8.5-10.1); CARBON DIOXIDE 31 mmol/L (21-32); CHLORIDE 101 mmol/L (98-107); CREATININE 0.7 mg/dL (0.6-1.3); GLUCOSE 178 mg/dL (74-106); MAGNESIUM 1.9 mg/dL (1.8-2.4); PHOSPHORUS 3.8 mg/dL (2.5-4.9); POTASSIUM 3.5 mmol/L (3.5-5.1); SODIUM SERUM 140 mmol/L (136-145); TOTAL PROTEIN, SERUM 6.6 g/dL (6.4-8.2); UREA NITROGEN, BLOOD 32 mg/dL (7-18)
[2018-12-30] MEDS: ALBUTEROL FS 2.5 MG/3 ML VIAL.NEB NEB SCH ×3 (07:47→19:17)
[2018-12-30] MEDS: IPRATROPIUM NEB FS 0.5 MG/2.5 ML AMPUL.NEB NEB SCH ×3 (07:47→19:17)
[2018-12-30 08:00] VITALS: BP 113/67
[2018-12-30] MEDS: LOSARTAN POTASSIUM 50 MG TABLET PO SCH (09:32)
[2018-12-30] MEDS: DILTIAZEM HCL CD 240 MG PO SCH (09:32)
[2018-12-30] MEDS: POTASSIUM CHLORIDE 20 MEQ TAB.PRT.SR PO SCH (09:32)
[2018-12-30] MEDS: FUROSEMIDE 40 MG TABLET PO SCH (09:32)
[2018-12-30] MEDS: TRIAMCINOLONE ACETONIDE 0.1% CR 15 GM TUBE TP SCH ×2 (09:39→17:00)
--- NOTE | 2018-12-30 11:23 | NUR ---
MS RN NOTES TOOK OVER CARE, REPORT GIVEN BY ADRIANA WARNER. NO ACUTE DISTRESS. SAFETY MEASURES IN PLACE. CALL LIGHT WITHIN REACH WILL CONTINUE TO MONITOR ACCORDINGLY.
--- NOTE | 2018-12-30 11:28 | NUR ---
REPORT TO NURSE LUCY PT RESTING IN BED NO DISTRESS
--- NOTE | 2018-12-30 11:31 | NUR ---
WOUND CARE CONSULT PATIENT RECEIVED CONSULT FOR BACK RASHES/RLE REDNESS. WOUND CARE WILL DEFER CONSULT AND TREATMENT PLANS TO PLASTIC SURGICAL TEAM WHO ARE CURRENTLY FOLLOWING THIS PATIENT. PATIENT WITH SIMEON AT 19, WILL SEE PRN.
[2018-12-30 16:00] VITALS: BP 113/52
[2018-12-30] MEDS: RIVAROXABAN 10 MG TABLET PO SCH (17:00)
--- NOTE | 2018-12-30 19:00 | NUR ---
MS RN NOTES PATIENT IN BED , ALERT ORIENTED X 3. NO ACUTE DISTRESS NOTED. BREATHING UNLABORED. IV ACCESS PATENT AND INTACT. DUE MEDICATIONS GIVEN, NO ASE NOTED.REFUSED SOME MEDICATIONS DESPITE OF EXPLANATION OF RISK AND BENEFITS. NEEDS ATTENDED AND ANTICIPATED. SAFETY MEASURES IN PLACE. CALL LIGHT WITHIN REACH.PATIENT FOR DISCHARGE HOME TONIGHT. PATIENT REFUSED BODY ASSESSMENT AND PHOTO TAKEN DESPITE OF EXPLANATION OF RISK AND BENEFITS. ENDORSE TO NIGHT NURSE FOR CONTINUITY CARE AND DISCHARGE.
--- NOTE | 2018-12-30 19:10 | NUR ---
MS RN NOTE RECEIVED PT IN STABLE CONDITION, A&O X4, ABLE TO MAKE NEEDS KNOWN. PT IN BED CONVERSING WITH CM. REFUSING TO BE D/C FROM HOSPITAL TONIGHT. NO SIGNS OF SOB OR DISTRESS, NO C/O PAIN. ALL CURRENT NEEDS ATTENDED TO. BED LOW, LOCKED, UPPER RAILS UP, AND CALL LIGHT WITHIN REACH. WILL CONT. TO MONITOR.
--- NOTE | 2018-12-30 19:45 | NUR ---
MS RN NOTE PER CM, PT. WILL BE D/C IN AM. WILL CONT. TO MONITOR.
[2018-12-30 20:49] VITALS: BP 126/76
--- NOTE | 2018-12-30 21:42 | NUR ---
MS RN NOTE PRN TYLENOL 650 MG PO GIVEN FOR C/O KNEE PAIN. WILL CONT. TO MONITOR.
[2018-12-31] MEDS: ACETAMINOPHEN 325 MG TABLET PO PRN (05:06)
--- NOTE | 2018-12-31 05:06 | NUR ---
MS RN NOTE PRN TYLENOL 650 MG PO GIVEN FOR LEG PAIN. WILL CONT. TO MONITOR.
--- NOTE | 2018-12-31 06:35 | NUR ---
MS RN NOTE PT IN STABLE CONDITION, A&O X4, ABLE TO MAKE NEEDS KNOWN. PT IN AWAKE IN BED. NO SIGNS OF SOB OR DISTRESS, NO C/O PAIN. ALL CURRENT NEEDS ATTENDED TO. BED LOW, LOCKED, UPPER RAILS UP, AND CALL LIGHT WITHIN REACH. WILL CONT. TO MONITOR AND ENDORSE TO NEXT SHIFT FOR NIECY.
--- NOTE | 2018-12-31 07:30 | NUR ---
MS RN OPENING NOTES RECEIVED PT LAYING IN BED W/ HOB ELEVATED. PT IS A/O X3, AFEBRILE. RESPIRATIONS ARE EVEN AND UNLABORED, NOT IN ANY ACUTE DISTRESS NOTED. PT DENIES ANY PAIN AT THIS TIME, NO C/O SOB, N/V. IV SITE TO LFA INTACT, NO INFILTRATION NOTED. DRESSING KEPT CLEAN AND DRY. SAFETY MEASURES ARE IN PLACE. INSTRUCTED PT TO USE CALL LIGHT WHEN ASSISTANCE IS NEEDED, CALL LIGHT IS LEFT WITHIN REACH. WILL MONITOR THROUGHOUT SHIFT FOR COTNINUITY OF CARE.
[2018-12-31] MEDS: ALBUTEROL FS 2.5 MG/3 ML VIAL.NEB NEB SCH ×2 (07:35→13:30)
[2018-12-31] MEDS: IPRATROPIUM NEB FS 0.5 MG/2.5 ML AMPUL.NEB NEB SCH ×2 (07:35→13:30)
--- NOTE | 2018-12-31 07:42 | NUR ---
PT REFUSED RESP TX AT THIS TIME. NO S/S OF SOB NOTED. BENEFITS AND CONTRAINDICATIONS EXPLAINED. WILL CONT TO MONITOR PT Addendum: 12/31/18 at 0743 by ANISA BACA RT Amended: Links added.
[2018-12-31 08:00] VITALS: BP 120/71
[2018-12-31] MEDS: POTASSIUM CHLORIDE 20 MEQ TAB.PRT.SR PO SCH (08:37)
[2018-12-31] MEDS: LOSARTAN POTASSIUM 50 MG TABLET PO SCH (08:37)
[2018-12-31 08:38] VITALS: BP 120/71
[2018-12-31] MEDS: DILTIAZEM HCL CD 240 MG PO SCH (08:38)
[2018-12-31] MEDS: FUROSEMIDE 40 MG TABLET PO SCH (08:39)
[2018-12-31] MEDS: TRIAMCINOLONE ACETONIDE 0.1% CR 15 GM TUBE TP SCH (08:42)
--- NOTE | 2018-12-31 09:33 | NUR ---
MS RN NOTES-- PT STATED SHE DOESNT WANT TO GO HOME AND WANTS TO LEAVE ON WEDNESDAY. NOTIFIED DANIEL AMARO AND STATED SHE WILL COME SPEAK WITH THE PT.
--- NOTE | 2018-12-31 10:00 | NUR ---
MS RN NOTES-- PT WAS SEEN BY DANIEL HEARD AND PT AGREED TO LEAVE TODAY AFTER LUNCH.
--- NOTE | 2018-12-31 11:25 | NUR ---
PATIENT ADDRESS-- PT RECEIVED A TEXT MESSAGE FROM R STATING PT'S ADDRESS "[id number] [place] [address]."
--- NOTE | 2018-12-31 11:26 | NUR ---
MS RN NOTES-- EXPLAINED DISCHARGE PAPERWORK TO PT WITH VERBAL AND WRITTEN UNDERSTANDING.
--- NOTE | 2018-12-31 14:02 | NUR ---
MS RN NOTES-- INFORMED PT THAT PICTURES NEED TO BE TAKEN FOR SKIN ASSESSMENT/EVAL. PT REFUSED AND STATED "MY SKIN IS FINE." EXPLAINED THE IMPORTANCE OF TAKING PICTURES, PT STILL REFUSED. HONORED PT'S DIGNITY AND THE RIGHTS TO REFUSE.
--- NOTE | 2018-12-31 15:19 | NUR ---
MS INSPECTOR CLIP ON SUNGLASSES NOTE PT DISCHARGED TO HOME IN MEDICALLY STABLE CONDITION. PT IS A/O X4, AFEBRILE. RESPIRATIONS ARE EVEN AND UNLABORED, NOT IN ANY ACUTE DISTRESS NOTED. PT DENIES ANY PAIN, NO C/O SOB, N/V. PUPILS ARE REACTIVE TO LIGHT, BILATERAL HAND FRUIT GRADER OPERATOR ARE STRONG AND EQUAL. ABDOMEN IS SOFT AND NONDISTENDED, BOWEL SOUNDS ARE PRESENT IN ALL 4 QUADRANTS UPON AUSCULTATION. DENIES ANY BLADDER DISCOMFORT. PT REFUSED TO TAKE PICTURES OF SKIN, EXPLAINED THE IMPORTANCE AND REFUSED AGAIN. NO S/SX OF BLEEDING OR INFECTION TO SKIN. PT IS AMBULATORY. ALL BELONGINGS SENT WITH PT INCLUDING DISCHARGE PAPERWORK. ACCOMPANIED PT TO [place] WITH 1 STAFF ASSIST. PT LEFT IN STABLE CONDITION.
== END 2018-12-31 14:55 | disposition home or self-care (01) | DRG 291 ==
LOC: ER 06:06 → TELE 10:50 → MED 12-29 08:57
PROVIDERS: ADMIT Internal Medicine; ATTEND Internal Medicine
DX: I11.0 Hypertensive heart disease with heart failure (principal); J96.01 Acute respiratory failure with hypoxia; D68.59 Other primary thrombophilia; I50.33 Acute on chronic diastolic (congestive) heart failure; I48.91 Unspecified atrial fibrillation; I08.0 Rheumatic disorders of both mitral and aortic valves; J44.9 Chronic obstructive pulmonary disease, unspecified; Z86.711 Personal history of pulmonary embolism; Z79.01 Long term (current) use of anticoagulants; I73.9 Peripheral vascular disease, unspecified; S20.419A Abrasion of unspecified back wall of thorax, initial encounter; S60.423A Blister (nonthermal) of left middle finger, initial encounter; X58.XXXA Exposure to other specified factors, initial encounter; Y93.9 Activity, unspecified; Y92.009 Unspecified place in unspecified non-institutional (private) residence as the place of occurrence of the external cause
CPT/HCPCS: 36415; 71045-TC; 80048-TC; 80053-TC; 80061-TC; 80076-TC; 83735-TC; 83880; 84100-TC; 84484-TC; 85025-TC; 85730-TC; 87081-TC; A6403; G0378; J1940; J3475

== ENCOUNTER 2019-02-22 03:48 | Inpatient (IN) | payer OTHER, MEDICAID ==
[~2019-02-22] VITALS: Ht 157.5 cm; Wt 51.7 kg
[~2019-02-22 03:48] MED LIST changes: +ACET-73 PO; +ASPI-1169 PO; +CARV12.52 PO; +DIGO125T PO; +FAMO20TA8 PO; +LISI2.5T2 PO; +TRIA80OI TP
--- NOTE | 2019-02-22 04:00 | NUR ---
STEFANI FROM HOME. AAOX4. TO ER BED 8. BREATHING IS DYSPNEIC WITH NOTED GASPING AND PUFFING. HOWEVER, PT IS ABLE TO TALK IN FULL SENTENCE. PT PRESENTED WITH O2 VIA NC 3LPM. C/O SOB SINCE YESTERDAY WORST TODAY. DENIES COURTNEY. TROY JENNINGS AT BEDSIDE. AWAITING ORDERS
[2019-02-22 04:19] LABS: BASOPHILS # (AUTO) 0.1 /CMM (0.0-0.2); BASOPHILS % (AUTO) 0.8 % (0.0-2.0); EOSINOPHILS % (AUTO) 1.9 % (0.0-6.0); HEMATOCRIT 42 % (33-45); HEMOGLOBIN 13.5 g/dL (11.5-14.8); LYMPHOCYTES # (AUTO) 1.8 /CMM (0.8-4.8); MEAN CORPUSCULAR HGB CONC 32 g/dl (31.0-36.0); MEAN CORPUSCULAR VOLUME 89 fL (82-100); MONOCYTES # (AUTO) 0.3 /CMM (0.1-1.30); MONOCYTES % (AUTO) 4.3 % (2.0-12.0); NEUTROPHILS # (AUTO) 5.1 /CMM (1.8-8.9); PLATELET COUNT (AUTO) 333 /CMM (150-450); RED BLOOD CELL COUNT(AUTO) 4.68 MIL/uL (4.0-5.2); WHITE BLOOD COUNT (AUTO) 7.4 K/uL (4.3-11.0)
[2019-02-22 04:45] LABS: B-TYPE NATRIURETIC PEPTIDE 7486 PG/ML (0-125); CALCIUM, SERUM 10.1 mg/dL (8.5-10.1); CARBON DIOXIDE 26 mmol/L (21-32); CHLORIDE 101 mmol/L (98-107); CREATININE 0.6 mg/dL (0.6-1.3); GLUCOSE 144 mg/dL (74-106); POTASSIUM 4.9 mmol/L (3.5-5.1); SODIUM SERUM 137 mmol/L (136-145); UREA NITROGEN, BLOOD 19 mg/dL (7-18)
[2019-02-22] MEDS ORDERED: FUROSEMIDE 40 MG/4 ML VIAL ONE (05:29)
--- NOTE | 2019-02-22 05:30 | NUR ---
pt complains of breathing getting harder. md notified and ordered lasix 40mg ivp x1.
[2019-02-22] MEDS ORDERED: DILTIAZEM HCL 50 MG IV ONE (05:41)
[2019-02-22] MEDS ORDERED: ACETAMINOPHEN ES 500 MG TABLET ONE (05:41)
--- NOTE | 2019-02-22 05:45 | NUR ---
pt noted with hr of 165 and bp 183/149. md notified. order received to give cardizem 10mg iv x1.
[2019-02-22] MEDS ORDERED: ACETAMINOPHEN 325 MG TABLET PO ONE (06:00)
[2019-02-22] MEDS ORDERED: FUROSEMIDE 40 MG/4 ML VIAL IV ONE (06:00)
[2019-02-22] MEDS ORDERED: DILTIAZEM HCL 50 MG IV IV ONE (06:00)
--- NOTE | 2019-02-22 06:13 | NUR ---
pt breathing has improved. able to talk without catching her breathing.
--- NOTE | 2019-02-22 06:15 | NUR ---
pt provided with a commode at bedside. pt voiding. transfers on her own.
--- NOTE | 2019-02-22 07:21 | NUR ---
PT ENDORSED TO FRANCIA ROA RN FOR NIECY
--- NOTE | 2019-02-22 07:30 | NUR ---
REPORT GIVEN TO TIMMY CARBAJAL FOR NIECY.
[2019-02-22 08:00] VITALS: BP 134/90
--- NOTE | 2019-02-22 08:00 | NUR ---
ORACLE BPM CONSULTANT NOTES RECEIVED PATIENT FROM ER 78 Y/OLD FEMALE ON TELE, Dx. OF CHF EXACERBATION. TELE MONITOR ON ST -102. PATIENT ON O2-2L NC. PATIENT HAS NO ACUTE RESPIRATORY DISTRESS. PATIENT REFUSED PAIN, A/O X3/4. SKIN ASSESSMENT DONE PICTURE TAKEN. [id number] AMBULATORY ASSIST BATHROOM, FALL PRECAUTION MAINTAINED ALL THE TIME, V/S TAKEN BP -134/90, P-100, R-20, O2-92 NC. T-97.5/ . [facility] NEW PATIENT AND MEDICATION. CALL LIGHT WITHIN TO REACH. BELONGING CHECKED. CONTINUED MONITORING.
[2019-02-22] MEDS ORDERED: CARV25TA2 PO (08:55)
[2019-02-22] MEDS ORDERED: FAMO40TA7 PO (08:55)
[2019-02-22] MEDS ORDERED: FUROSEMIDE 40 MG/4 ML VIAL IV SCH (09:00)
[2019-02-22] MEDS: FUROSEMIDE 40 MG/4 ML VIAL IV SCH ×3 (09:56→16:39)
[2019-02-22] MEDS: DILTIAZEM HCL CD 240 MG PO SCH (09:56)
[2019-02-22] MEDS: FAMOTIDINE (20 MG) 20 MG TABLET PO SCH ×2 (09:58→16:39)
[2019-02-22] MEDS: CARVEDILOL 12.5 MG TABLET PO SCH ×2 (09:59→20:51)
[2019-02-22] MEDS: LISINOPRIL (5MG) 5 MG TABLET PO SCH (09:59)
--- NOTE | 2019-02-22 13:00 | NUR ---
RN NOTES D/C TELE BY MASSAGE OPERATOR TO [facility], ADMINISTERED SCHEDULED MEDICATION, V/S TAKEN STABLE. PATIENT EATING. CALL LIGHT WITHIN TO REACH. CONTINUED MONITORING.
[2019-02-22] MEDS: DIGOXIN 0.125 MG TABLET PO SCH (13:50)
[2019-02-22 13:52] VITALS: BP 101/72
[2019-02-22 16:00] VITALS: BP 93/67
[2019-02-22 16:08] VITALS: BP 122/67
[2019-02-22] MEDS: ACYCLOVIR 800 MG TABLET PO SCH (16:39)
[2019-02-22] MEDS: IBUPROFEN 400 MG TABLET PO PRN (16:39)
--- NOTE | 2019-02-22 16:39 | NUR ---
rn notes administered Motrin 400 mg po prn for [id number] pain.
[2019-02-22] MEDS: RIVAROXABAN 10 MG TABLET PO SCH (16:40)
[2019-02-22] MEDS: TRIAMCINOLONE OINT 0.1% 15 GM TUBE TP SCH (16:41)
--- NOTE | 2019-02-22 18:30 | NUR ---
RN NOTES MEDICATION WERE ADMINISTERED FOR PAIN EFFECTIVE, NO ACUTE RESPIRATORY DISTRESS. PATIENT AMBULATORY, MED COMPLAINT, ASSIST BATHROOM, CALL LIGHT WITHIN TO REACH. ENDORSED ONCOMING NURSE FOLLOW PLAN OF CARE.
--- NOTE | 2019-02-22 19:45 | NUR ---
RN MS OPENING NOTES RECEIVED PATIENT IN BED AWAKE, ALERT AND ORIENTED X4, VERBALLY RESPONSIVE, ABLE TO MAKE NEEDS KNOWN. BREATHING EVEN AND UNLABORED. NO SOB NOTED. ON OXYGEN VIA NC. CURRENTLY WITH NO COMPLAINTS OF PAIN OR DISCOMFORT. NO FACIAL GRIMACING. IV ON LEFT WRIST INTACT AND PATENT. SKIN DRY AND WARM TO TOUCH. AFEBRILE. ALL OTHER NEEDS ATTENDED TO. SAFETY MEASURES IN PLACE. CALL LIGHT WITHIN REACH. WILL CONTINUE TO MONITOR.
[2019-02-22 21:16] VITALS: BP 100/67
[2019-02-23] MEDS: IBUPROFEN 400 MG TABLET PO PRN ×2 (01:05→09:34)
[2019-02-23 01:15] LABS: APPEARANCE,URINE CLEAR (CLEAR); BILIRUBIN,URINE NEGATIVE (NEGATIVE); BLOOD, URINE TRACE-INTA Ery/uL (NEGATIVE); COLOR,URINE YELLOW (YELLOW); KETONES,URINE NEGATIVE (NEGATIVE); LEUKOCYTE ESTERASE ,URINE NEGATIVE (NEGATIVE); NITRITE, URINE NEGATIVE (NEGATIVE); PROTEIN,URINE TRACE mg/dl (NEGATIVE); UGLUCOSE NEGATIVE (NEGATIVE); UROBILINOGEN,URINE 0.2 EU/dL (0.2)
[2019-02-23 01:20] LABS: BACTERIA,URINE Few /HPF (None Seen); RBC,URINE 0-2 /HPF (0-2); SQUAMOUS EPITHELIAL CELL,UR Few /HPF (None Seen); WBC,URINE 0-2 /HPF (0-3)
[2019-02-23 06:00] VITALS: BP 106/68
--- NOTE | 2019-02-23 06:00 | NUR ---
RN MS NOTES RECEIVED EKG RESULTS SHOWING ACUTE SC. PER RT, EKG WAS RAN TWICE TO CONFIRM. ASSESSED PATIENT. IN BED RESTING. NOT IN ANY DISTRESS. BP 106/68, HR 80, 96% ON 2LPM VIA NC. PATIENT DENIES CHEST PAIN. INFORMED DR. SANTANA. DR. SANTANA ASKED IF PATIENT HAS AM LABS, INFORMED MD THAT PATIENT HAS AM LABS FOR THIS MORNING. PER DR. SANTANA ADD TROPONIN. TROPONIN WAS ALREADY PART OF AM LABS. INFORMED PHLEB TO DO IT STAT. WILL CONTINUE TO MONITOR.
[2019-02-23 06:28] LABS: BASOPHILS % (AUTO) 0.8 % (0.0-2.0); EOSINOPHILS % (AUTO) 5.2 % (0.0-6.0); HEMATOCRIT 37 % (33-45); LYMPHOCYTES # (AUTO) 1.5 /CMM (0.8-4.8); LYMPHOCYTES % (AUTO) 24.8 % (20.0-44.0); MEAN CORPUSCULAR HGB CONC 32 g/dl (31.0-36.0); MEAN CORPUSCULAR VOLUME 88 fL (82-100); MONOCYTES # (AUTO) 0.4 /CMM (0.1-1.30); MONOCYTES % (AUTO) 6.4 % (2.0-12.0); NEUTROPHILS # (AUTO) 3.7 /CMM (1.8-8.9); NEUTROPHILS % (AUTO) 62.8 % (43.0-81.0); PLATELET COUNT (AUTO) 254 /CMM (150-450); RED BLOOD CELL COUNT(AUTO) 4.24 MIL/uL (4.0-5.2); WHITE BLOOD COUNT (AUTO) 5.9 K/uL (4.3-11.0)
--- NOTE | 2019-02-23 06:47 | NUR ---
RN MS NOTES 1778 - STILL WAITING FOR TROPONIN RESULT. PATIENT RESTING IN BED. NOT IN ANY DISTRESS.
[2019-02-23 06:59] LABS: ALANINE AMINOTRANSFERASE 15 U/L (12-78); ALBUMIN 2.8 g/dL (3.4-5.0); ALKALINE PHOSPHATASE 82 U/L (46-116); ASPARTATE AMINOTRANSFERASE 17 U/L (15-37); BILIRUBIN,TOTAL 0.8 mg/dL (0.2-1.0); CALCIUM, SERUM 8.8 mg/dL (8.5-10.1); CARBON DIOXIDE 30 mmol/L (21-32); CHLORIDE 101 mmol/L (98-107); CHOLESTEROL 116 mg/dL (<200); CREATININE 0.8 mg/dL (0.6-1.3); GLUCOSE 108 mg/dL (74-106); HDL CHOLESTEROL 52 mg/dL (40-60); LDL 59 mg/dL (0-99); MAGNESIUM 1.6 mg/dL (1.8-2.4); PHOSPHORUS 4.3 mg/dL (2.5-4.9); POTASSIUM 3.6 mmol/L (3.5-5.1); SODIUM SERUM 137 mmol/L (136-145); THYROID STIMULATING HORMONE 0.812 uIU/mL (0.358-3.74); TOTAL PROTEIN, SERUM 6.1 g/dL (6.4-8.2); TRIGLYCERIDES 49 mg/dL (30-150); UREA NITROGEN, BLOOD 36 mg/dL (7-18)
--- NOTE | 2019-02-23 07:07 | NUR ---
RN MS NOTES RECEIVED TROPONIN OF 0.029. PAGED. DR. SANTANA. FOR FURTHER ORDERS. AWAITING CALL BACK PATIENT IS IN THE BATHROOM. NOT IN ANY DISTRESS. NO COMPLAINTS CHEST PAIN. WILL CONTINUE TO MONITOR.
--- NOTE | 2019-02-23 07:28 | NUR ---
RN MS CLOSING NOTES PATIENT RESTING IN BED. NOT IN ANY DISTRESS. VSS. ENDORSED TO SABRINA RN REGARDING EKG AND TROPONIN RESULTS. DID NOT RECEIVE A CALL BACK FROM DR. SANTANA. ALL OTHER NEEDS MET. SAFETY MEASURES IN PLACE. CALL LIGHT WITHIN REACH.
--- NOTE | 2019-02-23 07:30 | NUR ---
MS/RN OPENING NOTE THE PATIENT IS RECEIVED IN BED. AWAKE, ALERT AND ORIENTED X4. DENIES PAIN OR ANY DISCOMFORT. IN ROOM AIR AND DENIES SOB. RESPIRATION REGULAR AND UNLABORED. LFA G 18 PATENT AND SALINE LOCKED. BED LOW AND LOCKED. SIDE RAILS UP X2. CALL LIGHT WITHIN REACH. WILL CONTINUE TO MONITOR.
[2019-02-23 08:00] VITALS: BP 106/65
[2019-02-23] MEDS: ACYCLOVIR 800 MG TABLET PO SCH ×2 (08:32→17:08)
[2019-02-23] MEDS: FAMOTIDINE (20 MG) 20 MG TABLET PO SCH ×2 (08:33→17:07)
[2019-02-23] MEDS: CARVEDILOL 12.5 MG TABLET PO SCH (09:00)
[2019-02-23] MEDS: LISINOPRIL (5MG) 5 MG TABLET PO SCH (09:00)
[2019-02-23] MEDS: DILTIAZEM HCL CD 240 MG PO SCH (09:00)
--- NOTE | 2019-02-23 09:00 | NUR ---
MS/RN NOTE DR OCHOA IS MADE AWARE OF TROPONIN LEVEL OF 0.029 AND 02/23/19 ECG READING. PER NO NEW ORDERS.
[2019-02-23] MEDS: TRIAMCINOLONE OINT 0.1% 15 GM TUBE TP SCH ×2 (09:37→17:16)
[2019-02-23] MEDS: FUROSEMIDE 40 MG/4 ML VIAL IV SCH ×3 (09:37→17:17)
[2019-02-23] MEDS: POTASSIUM CHLORIDE 20 MEQ TAB.PRT.SR PO SCH ×3 (09:41→13:46)
[2019-02-23] MEDS: Magnesium 1GM/D5W 100ML PREMIX 100 ML IV SCH ×2 (09:41→11:15)
[2019-02-23] MEDS: DIGOXIN 0.125 MG TABLET PO SCH (13:47)
[2019-02-23 16:00] VITALS: BP 137/75
[2019-02-23] MEDS ORDERED: ACYC800T PO (16:12)
[2019-02-23] MEDS: RIVAROXABAN 10 MG TABLET PO SCH (17:08)
--- NOTE | 2019-02-23 17:17 | NUR ---
MS/RN NOTE OLGA GOLDBERG IS MADE AWARE THAT THE PATIENT REFUSED LASIX IV PUSH X2 DESPITE EXPLAINING RISKS AND BENEFITS.
--- NOTE | 2019-02-23 18:30 | NUR ---
MS/RN NOTE THE PATIENT ALERT AND ORIENTED X4. IN ROOM AIR AND SATURATION AT 94%. DENIES SOB. RESPIRATION REGULAR AND UNLABORED. DENIES PAIN. THE PATIENT IN NO APPARENT DISTRESS. DISCHARGE EDUCATION PROVIDED AND THE PATIENT VERBALIZED UNDERSTANDING. PRESCRIPTION HANDED AND THE COPY IS KEPT IN THE CHART. THE PATIENT LEFT THE HOSPITAL IN STABLE CONDITION. ON TAXI CAB. DAUGHTER AND INDEPENDENT LIVING MIXED ANIMAL VETERINARIAN ANISA ARE MADE AWARE OF DISCHARGE.
== END 2019-02-23 18:27 | disposition home or self-care (01) | DRG 292 ==
LOC: ER 03:51 → TELE 07:14 → MED 09:04
PROVIDERS: ADMIT Registered Nurse; ATTEND Registered Nurse
DX: I11.0 Hypertensive heart disease with heart failure (principal); B02.29 Other postherpetic nervous system involvement; J44.9 Chronic obstructive pulmonary disease, unspecified; F17.210 Nicotine dependence, cigarettes, uncomplicated; I42.9 Cardiomyopathy, unspecified; I48.2 Chronic atrial fibrillation; I73.9 Peripheral vascular disease, unspecified; K21.9 Gastro-esophageal reflux disease without esophagitis; Z79.01 Long term (current) use of anticoagulants; Z79.82 Long term (current) use of aspirin; S60.420A Blister (nonthermal) of right index finger, initial encounter; X58.XXXA Exposure to other specified factors, initial encounter; Y93.9 Activity, unspecified; Y92.009 Unspecified place in unspecified non-institutional (private) residence as the place of occurrence of the external cause; S20.419A Abrasion of unspecified back wall of thorax, initial encounter; I50.23 Acute on chronic systolic (congestive) heart failure
CPT/HCPCS: 36415; 71045-TC; 80048-TC; 80053-TC; 80061-TC; 80162-TC; 81000-TC; 83735-TC; 83880; 84100-TC; 84443-TC; 84484-TC; 85025-TC; 85730-TC; 87081-TC; G0378; J1940; J3475; J3490; J7050

== ENCOUNTER 2019-03-04 22:32 | Inpatient (IN) | payer OTHER, MEDICAID ==
[~2019-03-04] VITALS: Ht 157.5 cm; Wt 54.0 kg
[~2019-03-04 22:32] MED LIST changes: +ACYC800T PO; -CARV12.52 PO; +CARV25TA2 PO; -FAMO20TA8 PO; +FAMO40TA7 PO
--- NOTE | 2019-03-04 22:38 | NUR ---
PT [id number] FROM [facility] C/O SOB X 2 DAYS, SEEN HERE IN ER LAST WEEK FOR SAME. HX COPD. PT AOX3. NAD NOTED. RESP EVEN AND UNLABORED. PT ON 94% O2 ON RA. PT ON MONITOR IN BED 4 ROCHELLE RICHARDS. WILL CONTINUE TO MONITOR.
--- NOTE | 2019-03-04 22:53 | NUR ---
PHLEB AT BEDSIDE FOR LAB DRAW
[2019-03-04] MEDS ORDERED: NITROGLYCERIN PACKET 1 GM PACKET TD ONE (23:00)
[2019-03-04] MEDS ORDERED: FUROSEMIDE 40 MG/4 ML VIAL IV ONE (23:00)
[2019-03-04 23:03] LABS: HEMATOCRIT 41 % (33-45); HEMOGLOBIN 12.9 g/dL (11.5-14.8); MEAN CORPUSCULAR HGB CONC 32 g/dl (31.0-36.0); MEAN CORPUSCULAR VOLUME 90 fL (82-100); NEUTROPHILS % (AUTO) 67.8 % (43.0-81.0); PLATELET COUNT (AUTO) 314 /CMM (150-450); RED BLOOD CELL COUNT(AUTO) 4.51 MIL/uL (4.0-5.2); WHITE BLOOD COUNT (AUTO) 6.3 K/uL (4.3-11.0)
[2019-03-04 23:04] LABS: BASOPHILS # (AUTO) 0.1 /CMM (0.0-0.2); BASOPHILS % (AUTO) 0.8 % (0.0-2.0); EOSINOPHILS % (AUTO) 1.5 % (0.0-6.0); LYMPHOCYTES # (AUTO) 1.5 /CMM (0.8-4.8); LYMPHOCYTES % (AUTO) 24.5 % (20.0-44.0); MONOCYTES # (AUTO) 0.3 /CMM (0.1-1.30); MONOCYTES % (AUTO) 5.4 % (2.0-12.0); NEUTROPHILS # (AUTO) 4.3 /CMM (1.8-8.9)
--- NOTE | 2019-03-04 23:05 | NUR ---
TECH AT BEDSIDE FOR LAB DRAW
[2019-03-04 23:10] LABS: CALCIUM, SERUM 10.1 mg/dL (8.5-10.1); CARBON DIOXIDE 24 mmol/L (21-32); CHLORIDE 102 mmol/L (98-107); CREATININE 0.7 mg/dL (0.6-1.3); GLUCOSE 136 mg/dL (74-106); POTASSIUM 4.5 mmol/L (3.5-5.1); SODIUM SERUM 137 mmol/L (136-145); UREA NITROGEN, BLOOD 17 mg/dL (7-18)
[2019-03-04 23:18] LABS: MAGNESIUM 1.6 mg/dL (1.8-2.4); PHOSPHORUS 3.7 mg/dL (2.5-4.9)
[2019-03-04 23:20] LABS: DIGOXIN 0.04 ng/mL (0.90-2.00)
[2019-03-04 23:22] LABS: ALANINE AMINOTRANSFERASE 20 U/L (12-78); ALBUMIN 3.5 g/dL (3.4-5.0); ALKALINE PHOSPHATASE 115 U/L (46-116); ASPARTATE AMINOTRANSFERASE 27 U/L (15-37); B-TYPE NATRIURETIC PEPTIDE 6545 PG/ML (0-125); BILIRUBIN,DIRECT 0.4 mg/dL (0.0-0.2); BILIRUBIN,TOTAL 1.9 mg/dL (0.2-1.0); TOTAL PROTEIN, SERUM 7.2 g/dL (6.4-8.2)
[2019-03-04] MEDS ORDERED: DIGOXIN 0.25 MG TABLET PO ONE (23:30)
[2019-03-04] MEDS ORDERED: METOPROLOL TARTRATE INJ 5 MG/5 ML AMPUL IV ONE (23:30)
[2019-03-04] MEDS ORDERED: FUROSEMIDE 20 MG/2 ML VIAL ONE (23:57)
[2019-03-04] MEDS ORDERED: METOPROLOL TARTRATE INJ 5 MG/5 ML AMPUL ONE (23:57)
[2019-03-04] MEDS ORDERED: NITROGLYCERIN PACKET 1 GM PACKET ONE (23:58)
[2019-03-04] MEDS ORDERED: DIGOXIN 0.25 MG TABLET ONE (23:58)
[2019-03-05] VITALS (8 sets, daily range): BP systolic 101–135; BP diastolic 65–96
--- NOTE | 2019-03-05 00:01 | NUR ---
[id number] INITIATED.
--- NOTE | 2019-03-05 00:11 | NUR ---
BED 116-2
[2019-03-05] MEDS ORDERED: MAG HYDROX/AL HYDROX/SIMETH 30 ML UDC PO PRN (00:30)
[2019-03-05] MEDS ORDERED: ALBUTEROL FS 2.5 MG/0.5 ML VIAL.NEB NEB PRN (00:30)
[2019-03-05] MEDS ORDERED: MAGNESIUM HYDROXIDE 30 ML UDC PO PRN (00:30)
[2019-03-05] MEDS: DIGOXIN INJ 0.5 MG/2 ML AMPUL IV ONE ×2 (00:30→04:16)
[2019-03-05] MEDS ORDERED: Z GUARD REMEDY 2 OZ OINT TP PRN (00:30)
[2019-03-05] MEDS ORDERED: ONDANSETRON HCL/PF 4 MG/2 ML VIAL IVP PRN (00:30)
[2019-03-05] MEDS ORDERED: ZOLPIDEM TARTRATE 5 MG TABLET PO PRN (00:30)
[2019-03-05] MEDS ORDERED: HYDROCODONE/APAP 5/325MG 1 EACH TABLET PO PRN (00:30)
--- NOTE | 2019-03-05 01:24 | NUR ---
REPORT GIVEN TO TIMMY CASTILLO FOR NIECY
[2019-03-05] MEDS: CARVEDILOL 12.5 MG TABLET PO ONE ×2 (02:00→04:16)
[2019-03-05] MEDS ORDERED: Magnesium 1GM/D5W 100ML PREMIX 200 ML IV ONE (03:59)
[2019-03-05] MEDS ORDERED: DIGOXIN INJ 0.5 MG/2 ML AMPUL ONE (03:59)
[2019-03-05] MEDS: Magnesium 1GM/D5W 100ML PREMIX 100 ML IV SCH ×3 (04:15→09:13)
--- NOTE | 2019-03-05 05:47 | NUR ---
RN NOTES ADMITTED A 78 YEAR OLD FEMALE FROM EMERGENCY DEPT VIA STRETCHER IN STABLE CONDITION. BREATHING EVEN AND UNLABORED. VITAL SIGNS WNL. SKIN ASSESSED, NOTED WITH RASHES ON LEFT SIDE OF THE BACK. NO COMPLAINT OF PAIN OR DISCOMFORT. ALERT AND RESPONSIVE WITH CONFUSION. VERBALLY ABLE TO COMMUNICATE NEEDS. REFUSED ALL MEDICATIONS AND TREATMENTS. CALLED DR GALVIN Addendum: 03/05/19 at 0558 by NANCIE GERBER RN DR COBOS, WAITING FOR CALL BACK. WILL ENDORSE TO NEXT SHIFT FOR CONTINUITY CARE
--- NOTE | 2019-03-05 07:59 | NUR ---
MANAGER HOSPITAL NOTES RECEIVED BEDSIDE REPORT PATIENT IN BED ASLEEP ABLE TO AROUSE WITH TOUCH AND VOICE. A/O X3 WITH WANDER THOUGHTS AND SPEAKING TO SELF AT TIMES. AFIB ON MONITOR WITH RVR. HR 130'S. BILATERAL WRIST RESTRAINTS APPLIED AND RELEASED FOR CIRCULATION CHECK. NO SIGNS OR SYMPTOMS OF RESPIRATORY DISTRESS ON 2 LTRS NASAL CANNULA OR C/O PAIN NOTED. IV TO LFA # 20 GAUGE. ACCORDING TO NOC PATIENT C/O PAIN TO SITE SO NO IV MEDS OR FLUIDS RUNNING. SAFETY AND FALL PRECAUTIONS IN PLACE BED IN LOW LOCKED POSITION. CALL LIGHT WITHIN REACH WILL CONT TO MONITOR ACCORDINGLY.
--- NOTE | 2019-03-05 08:03 | NUR ---
TELE ORQUIDEA RN OPENING NOTES Received patient laying in bed with bilateral wrist restraints. Alert and oriented x 3, confused at times on 02 via nasal canula 6L continuously. No SOB or acute distress noted. IV line is on left hand, G20, site is clean, dry and intact. No infiltration noted. Bed is in low position an locked. Call light within reach. Safety precautions in place. Restraints were removed from both wrists, no redness noted. Patient ambulated to bathroom to void. Addendum: 03/05/19 at 0816 by CRISTOBAL REESE RN Alert and oriented x 3, wandering thoughts, no confusion noted.
--- NOTE | 2019-03-05 08:25 | NUR ---
TIMMY HEARD PATIENT INFORMED RN THAT SHE HAS RASH ALL OVER AND CURRENTLY BEING TREATED FOR SHINGLES WILL UPDATE PATIENT'S CHOICE [facility]
[2019-03-05] MEDS ORDERED: DIGOXIN 0.125 MG TABLET PO SCH (09:00)
[2019-03-05] MEDS ORDERED: FUROSEMIDE 40 MG/4 ML VIAL IV SCH ×2 (09:00)
[2019-03-05] MEDS: ASPIRIN 81 MG TAB.CHEW PO SCH (09:14)
[2019-03-05] MEDS: CARVEDILOL 12.5 MG TABLET PO SCH ×2 (09:15→17:14)
[2019-03-05] MEDS: DILTIAZEM HCL CD 240 MG PO SCH (09:15)
[2019-03-05] MEDS: FAMOTIDINE (20 MG) 20 MG TABLET PO SCH ×2 (09:15→17:14)
[2019-03-05] MEDS: LISINOPRIL (5MG) 5 MG TABLET PO SCH (09:15)
[2019-03-05] MEDS: ACYCLOVIR 800 MG TABLET PO SCH ×4 (11:05→20:00)
--- NOTE | 2019-03-05 11:14 | NUR ---
DIRECTOR OF CATERING SALES ORQUIDEA PROGRESS NOTE 03/05/2019 09:54 placed on contact isolations and droplet isolates
[2019-03-05] MEDS: ACETAMINOPHEN 325 MG TABLET PO PRN (11:31)
--- NOTE | 2019-03-05 11:36 | NUR ---
SEWING TEACHER ORQUIDEA PROGRESS NOTE Patient reported /10 pain on the left side of her back (shingles location). Administered PRN Acetaminophen 650mg PO for pain, tolerated medication well. Will reassess pain level. Addendum: 03/05/19 at 1229 by CRISTOBAL REESE RN Reassessed pain level at 12:28. Reports pain has decreased, rates it as a 5/10.
[2019-03-05] MEDS: DIGOXIN 0.125 MG TABLET PO SCH (14:08)
[2019-03-05] MEDS: RIVAROXABAN 10 MG TABLET PO SCH (17:15)
--- NOTE | 2019-03-05 18:11 | NUR ---
18:11 Pt refused Acyclovir 800mg scheduled 18:00 dosage. Pt spit medication out and stated "I just took this medication. I am not going to take it again" Explained to patient the purpose of medication and frequency of medication. Pt refused to take it again.
--- NOTE | 2019-03-05 18:57 | NUR ---
LINOLEUM INSTALLER ORQUIDEA CLOSING NOTES patient is stable and cooperative throughout most of the shift. Towards the end of the shift patient became agitated, stating she no longer wants to be here, endorsed to charge nurse for patient to be moved closer to the nursing station or a possible sitter. Pt is ambulating, alert and oriented x 4, on 02 via NC 2L/min continuously. No SOB or acute distress noted. IV line in place saline lock on left forearm G20. All due meds have been given except for 18:00 dose of Acyclovir which patient refused. Respirations are easy, unlabored. Denies any pain at the moment. Pitting edema +3 on left leg. Received SCD device, unable to put on patient because patient is ambulating. Endorsed to shift supervisor film processing NIECY.
--- NOTE | 2019-03-05 20:00 | NUR ---
TD RN NOTES RECEIVED PT ON BED. VERY ANXIOUS, AGITATED WANTING TO GO HOME. ON ROOM AIR NO RESPIRATORY DISTRESS NOTED. ON TELE MONITOR SB SR 55-65. IV ACCESS ON LFA G20 PATENT AND INTACT;. HEAD OF BED ELEVATED, SIDE RAILS UP. BED ALARM ON. CALL LIGHT WITHIN REACH. WILL MONITOR PT CLOSELY.
--- NOTE | 2019-03-05 23:39 | NUR ---
TD RN NOTES PAGED EPIC FOR SB 39 SUSTAINED. BLOOD PRESSURE 93/53. AWAITING CALL BACK.
--- NOTE | 2019-03-05 23:45 | NUR ---
TD RN NOTES PER DR COBOS. HOLD COREG HR LESS THAN 50. NO NEW ORDERS.
[2019-03-06] VITALS (8 sets, daily range): BP systolic 96–103; BP diastolic 56–81
--- NOTE | 2019-03-06 01:24 | NUR ---
TD RN NOTES PT SLEEPING COMFORTABLE. AFIB HR OF 38-45. BP 103/66 ON NASAL CANNULA 3LPM NO RESPIRATORY DISTRESS NOTED. WILL MONITOR PT CLOSELY.
--- NOTE | 2019-03-06 01:58 | NUR ---
TD RN NOTES PT REFUSING NASAL CANNULA. EXPLAINED RISK AND BENEFITS. PT STILL REFUSED. NO RESPIRATORY DISTRESS NOTED. O2 SATURATION 95% ON RA
[2019-03-06] MEDS: ACETAMINOPHEN 325 MG TABLET PO PRN ×2 (05:29→21:09)
[2019-03-06] MEDS: ACYCLOVIR 800 MG TABLET PO SCH ×5 (06:18→20:16)
--- NOTE | 2019-03-06 06:46 | NUR ---
TD RN NOTES NO ACUTE CHANGES NOTED DURING THE SHIFT. PT CONTROLLED AFIB 38-50 THROUGHOUT THE SHIFT. NO RESPIRATORY DISTRESS NOTED. WILL ENDORSE TO THE AM NURSE FOR CONTINUITY OF CARE.
[2019-03-06 07:28] LABS: ALANINE AMINOTRANSFERASE 17 U/L (12-78); ALKALINE PHOSPHATASE 93 U/L (46-116); ASPARTATE AMINOTRANSFERASE 19 U/L (15-37); BILIRUBIN,TOTAL 1.1 mg/dL (0.2-1.0); CALCIUM, SERUM 9.6 mg/dL (8.5-10.1); CARBON DIOXIDE 32 mmol/L (21-32); CHLORIDE 101 mmol/L (98-107); CREATININE 0.8 mg/dL (0.6-1.3); GLUCOSE 123 mg/dL (74-106); MAGNESIUM 1.9 mg/dL (1.8-2.4); PHOSPHORUS 3.3 mg/dL (2.5-4.9); POTASSIUM 3.6 mmol/L (3.5-5.1); SODIUM SERUM 138 mmol/L (136-145); TOTAL PROTEIN, SERUM 6.3 g/dL (6.4-8.2); UREA NITROGEN, BLOOD 22 mg/dL (7-18)
[2019-03-06 07:41] LABS: BASOPHILS % (AUTO) 0.6 % (0.0-2.0); EOSINOPHILS % (AUTO) 5.2 % (0.0-6.0); HEMATOCRIT 38 % (33-45); LYMPHOCYTES # (AUTO) 1.4 /CMM (0.8-4.8); LYMPHOCYTES % (AUTO) 21.1 % (20.0-44.0); MEAN CORPUSCULAR HGB CONC 32 g/dl (31.0-36.0); MEAN CORPUSCULAR VOLUME 89 fL (82-100); MONOCYTES # (AUTO) 0.4 /CMM (0.1-1.30); MONOCYTES % (AUTO) 6.1 % (2.0-12.0); NEUTROPHILS # (AUTO) 4.4 /CMM (1.8-8.9); PLATELET COUNT (AUTO) 264 /CMM (150-450); RED BLOOD CELL COUNT(AUTO) 4.25 MIL/uL (4.0-5.2); WHITE BLOOD COUNT (AUTO) 6.5 K/uL (4.3-11.0)
[2019-03-06] MEDS: FAMOTIDINE (20 MG) 20 MG TABLET PO SCH ×2 (08:10→17:18)
[2019-03-06] MEDS: ASPIRIN 81 MG TAB.CHEW PO SCH (08:10)
[2019-03-06] MEDS: LISINOPRIL (5MG) 5 MG TABLET PO SCH (08:11)
[2019-03-06] MEDS: CARVEDILOL 12.5 MG TABLET PO SCH ×2 (08:21→17:00)
[2019-03-06] MEDS: DILTIAZEM HCL CD 240 MG PO SCH (08:21)
[2019-03-06] MEDS ORDERED: diphenhydrAMINE HCL/ZINC ACET CREAM 28.3 GM TUBE TP PRN (12:30)
[2019-03-06] MEDS: DIGOXIN 0.125 MG TABLET PO SCH (13:00)
[2019-03-06] MEDS: FUROSEMIDE 40 MG TABLET PO SCH ×2 (13:20→17:18)
[2019-03-06] MEDS: POTASSIUM CHLORIDE 20 MEQ TAB.PRT.SR PO SCH (13:20)
[2019-03-06] MEDS: RIVAROXABAN 10 MG TABLET PO SCH (17:28)
--- NOTE | 2019-03-06 19:25 | NUR ---
RN NOTES, RECEIVED PATIENT SITTING ON BED, ON ROOM AIR, NO SOB/ NO RESPIRATORY DISTRESS NOTED AT THIS TIME, ON IV ACCESS ON LFA G20 PATENT AND INTACT, 2 1/2 BED SIDE RAILS UP, BED ALARM ON, CALL LIGHT WITHIN REACH, WILL CONTINUE TO MONITOR PATIENT CLOSELY.
[2019-03-06 20:35] LABS: APPEARANCE,URINE CLEAR (CLEAR); BILIRUBIN,URINE NEGATIVE (NEGATIVE); BLOOD, URINE NEGATIVE Ery/uL (NEGATIVE); COLOR,URINE YELLOW (YELLOW); KETONES,URINE NEGATIVE (NEGATIVE); LEUKOCYTE ESTERASE ,URINE NEGATIVE (NEGATIVE); NITRITE, URINE NEGATIVE (NEGATIVE); PROTEIN,URINE NEGATIVE (NEGATIVE); UGLUCOSE NEGATIVE (NEGATIVE); UROBILINOGEN,URINE 0.2 EU/dL (0.2)
[2019-03-07 04:00] VITALS: BP 127/74
[2019-03-07 06:27] LABS: BASOPHILS % (AUTO) 0.6 % (0.0-2.0); EOSINOPHILS % (AUTO) 4.2 % (0.0-6.0); HEMATOCRIT 37 % (33-45); LYMPHOCYTES # (AUTO) 1.5 /CMM (0.8-4.8); LYMPHOCYTES % (AUTO) 24.5 % (20.0-44.0); MEAN CORPUSCULAR HGB CONC 32 g/dl (31.0-36.0); MEAN CORPUSCULAR VOLUME 89 fL (82-100); MONOCYTES # (AUTO) 0.5 /CMM (0.1-1.30); MONOCYTES % (AUTO) 7.6 % (2.0-12.0); NEUTROPHILS # (AUTO) 3.8 /CMM (1.8-8.9); NEUTROPHILS % (AUTO) 63.1 % (43.0-81.0); PLATELET COUNT (AUTO) 282 /CMM (150-450); RED BLOOD CELL COUNT(AUTO) 4.19 MIL/uL (4.0-5.2)
--- NOTE | 2019-03-07 06:35 | NUR ---
RN NOTES, PATIENT WALKING IN ROOM ASKIN FOR COFFEE AND BREAKFAST, ON ROOM AIR, NO SOB/ NO RESPIRATORY DISTRESS NOTED AT THIS TIME, IV ACCESS ON LFA G20 PATENT AND INTACT, 2 1/2 BED SIDE RAILS UP, BED ALARM ON, NO SIGNIFICANT CHANGE IN CONDITION DURING THE NIGHT, CALL LIGHT WITHIN REACH, WILL ENDORSE CONTINUITY OF CARE TO ONCOMING NURSE.
[2019-03-07 06:49] LABS: ALANINE AMINOTRANSFERASE 27 U/L (12-78); ALBUMIN 3.2 g/dL (3.4-5.0); ALKALINE PHOSPHATASE 102 U/L (46-116); ASPARTATE AMINOTRANSFERASE 21 U/L (15-37); BILIRUBIN,TOTAL 0.6 mg/dL (0.2-1.0); CALCIUM, SERUM 9.2 mg/dL (8.5-10.1); CARBON DIOXIDE 30 mmol/L (21-32); CHLORIDE 101 mmol/L (98-107); CREATININE 0.8 mg/dL (0.6-1.3); GLUCOSE 169 mg/dL (74-106); MAGNESIUM 1.8 mg/dL (1.8-2.4); PHOSPHORUS 3.7 mg/dL (2.5-4.9); POTASSIUM 3.5 mmol/L (3.5-5.1); SODIUM SERUM 138 mmol/L (136-145); TOTAL PROTEIN, SERUM 6.8 g/dL (6.4-8.2); UREA NITROGEN, BLOOD 32 mg/dL (7-18)
[2019-03-07 08:00] VITALS: BP 121/65
--- NOTE | 2019-03-07 08:00 | NUR ---
RN NOTES, RECEIVED PATIENT AMBULATING IN THE ROOM WITH SLOW,STEADY GAIT, ON ROOM AIR, NO SOB/ NO RESPIRATORY DISTRESS NOTED AT THIS TIME, ON IV ACCESS ON LFA G20 PATENT AND INTACT, 2 1/2 BED SIDE RAILS UP, BED ALARM ON, ON CONTACT ISOLATION FOR SHINGLES. CALL LIGHT WITHIN REACH, WILL CONTINUE TO MONITOR PATIENT CLOSELY.
[2019-03-07] MEDS: POTASSIUM CHLORIDE 20 MEQ TAB.PRT.SR PO SCH (09:50)
[2019-03-07] MEDS: LISINOPRIL (5MG) 5 MG TABLET PO SCH (09:51)
[2019-03-07] MEDS: CARVEDILOL 12.5 MG TABLET PO SCH ×2 (09:51→16:40)
[2019-03-07] MEDS: FUROSEMIDE 40 MG TABLET PO SCH ×2 (09:52→16:38)
[2019-03-07] MEDS: ASPIRIN 81 MG TAB.CHEW PO SCH (09:52)
[2019-03-07] MEDS: DILTIAZEM HCL CD 240 MG PO SCH (09:52)
[2019-03-07] MEDS: FAMOTIDINE (20 MG) 20 MG TABLET PO SCH ×2 (09:52→16:38)
[2019-03-07] MEDS: ACYCLOVIR 800 MG TABLET PO SCH ×3 (09:56→16:38)
--- NOTE | 2019-03-07 13:05 | NUR ---
WOUND CARE CONSULT WOUND CARE RECEIVED CONSULT FOR LEFT SIDE OF THE BACK RASHES. WOUND CARE WILL DEFER CONSULT AND TREATMENT PLAN TO PLASTIC SURGICAL TEAM WHO ARE CURRENTLY FOLLOWING THIS PATIENT. PATIENT WITH SIMEON AT 19, WILL SEE PRN.
[2019-03-07] MEDS: DIGOXIN 0.125 MG TABLET PO SCH (13:11)
[2019-03-07] MEDS: RIVAROXABAN 10 MG TABLET PO SCH (16:39)
[2019-03-07 16:40] VITALS: BP 122/69
--- NOTE | 2019-03-07 17:51 | NUR ---
DISCHARGED PT WITH STABLE V/S VIA AMBULANCE TO INDEPENDENT LIVING OWNED BY ANISA [phone]. [id number] [facility] [id number].ANISA MADE AWARE OF THE DISCHARGE.PT REFUSED TO HAVE PHOTOS TO BE TAKEN INSPITE OF EXPLAINING ITS RISKS AND BENEFITS.DENIES ANY PAIN NOR DISTRESS.WAS SEEN BY DR GUZMAN FOR PSYCH CONSULT DUE TO AGITATION WITH ORDERS FOR DEPAKOTE.DR GUZMAN STATED FOR PT TO JUST F/U WITH HER PMD FOR PSYCH F/U AND NO RX GIVEN.IV H/L TO LFA REMOVED WITHOUT BLEEDING NOTED.INSTRUCTED TO CONTINUE MEDS INSTRUCTED.
[2019-03-07] MEDS ORDERED: DIVALPROEX SODIUM 125 MG CAP.SPRINK PO SCH (21:00)
== END 2019-03-07 17:46 | disposition home or self-care (01) | DRG 308 ==
LOC: ER 22:36 → TELE1 03-05 01:30 → TELE-TD 03-05 02:34 → MEDSG1 03-06 18:46
PROVIDERS: ADMIT Internal Medicine; ATTEND Nurse Practitioner Acute Care
DX: I48.91 Unspecified atrial fibrillation (principal); I50.23 Acute on chronic systolic (congestive) heart failure; E44.1 Mild protein-calorie malnutrition; B02.29 Other postherpetic nervous system involvement; I11.0 Hypertensive heart disease with heart failure; Z79.01 Long term (current) use of anticoagulants; F17.210 Nicotine dependence, cigarettes, uncomplicated; J44.9 Chronic obstructive pulmonary disease, unspecified; K21.9 Gastro-esophageal reflux disease without esophagitis; Z91.19 Patient's noncompliance with other medical treatment and regimen; Z79.82 Long term (current) use of aspirin; I73.9 Peripheral vascular disease, unspecified; I42.9 Cardiomyopathy, unspecified; E83.42 Hypomagnesemia; R74.0 Nonspecific elevation of levels of transaminase and lactic acid dehydrogenase [LDH]; F39 Unspecified mood [affective] disorder; Z68.21 Body mass index [BMI] 21.0-21.9, adult
CPT/HCPCS: 36415; 71045-TC; 80048-TC; 80053-TC; 80076-TC; 80162-TC; 81000-TC; 83735-TC; 83880; 84100-TC; 84484-TC; 85025-TC; 87081-TC; 87086-TC; 94799-TC; G0378; J1160; J1940; J3475; J3490; J7050

== ENCOUNTER 2019-03-17 10:51 | Inpatient (IN) | payer OTHER, MEDICAID ==
[~2019-03-17] VITALS: Ht 157.5 cm; Wt 59.0 kg
--- NOTE | 2019-03-17 10:56 | NUR ---
PT BIB RA FROM [facility], C/O SOB X 3 DAYS,SPEAKING FULL SENTENCES, PT IS AAOX4, NOTED RESPIRATORY DISTRESS, HOOKED TO MONITOR, KEPT RESTED AND COMFORTABLE, WILL CONTINUE TO MONITOR.
[2019-03-17] MEDS ORDERED: FUROSEMIDE 40 MG/4 ML VIAL IV ONE (11:00)
--- NOTE | 2019-03-17 11:01 | NUR ---
PT SEEN AND EXAMINED BY .
--- NOTE | 2019-03-17 11:10 | NUR ---
RETAIL MERCHANDISER AT BEDSIDE FOR XRAY.
--- NOTE | 2019-03-17 11:16 | NUR ---
IV LINE ESTABLISHED, BLOOD DRAWNED AND SENT TO LAB.
[2019-03-17] MEDS ORDERED: FUROSEMIDE 20 MG/2 ML VIAL ONE (11:20)
[2019-03-17 11:22] LABS: BASOPHILS % (AUTO) 0.7 % (0.0-2.0); EOSINOPHILS % (AUTO) 1.3 % (0.0-6.0); HEMATOCRIT 40 % (33-45); HEMOGLOBIN 12.7 g/dL (11.5-14.8); LYMPHOCYTES # (AUTO) 1.4 /CMM (0.8-4.8); MEAN CORPUSCULAR HGB CONC 32 g/dl (31.0-36.0); MEAN CORPUSCULAR VOLUME 90 fL (82-100); MONOCYTES # (AUTO) 0.4 /CMM (0.1-1.30); MONOCYTES % (AUTO) 6.3 % (2.0-12.0); NEUTROPHILS # (AUTO) 4.6 /CMM (1.8-8.9); NEUTROPHILS % (AUTO) 70.7 % (43.0-81.0); PLATELET COUNT (AUTO) 258 /CMM (150-450); RED BLOOD CELL COUNT(AUTO) 4.44 MIL/uL (4.0-5.2); WHITE BLOOD COUNT (AUTO) 6.5 K/uL (4.3-11.0)
--- NOTE | 2019-03-17 11:32 | NUR ---
CALLED FOR TELE BED, TURNED IN MOVE SHEET
[2019-03-17 11:43] LABS: CALCIUM, SERUM 9.6 mg/dL (8.5-10.1); CARBON DIOXIDE 27 mmol/L (21-32); CHLORIDE 105 mmol/L (98-107); CREATININE 0.7 mg/dL (0.6-1.3); GLUCOSE 156 mg/dL (74-106); POTASSIUM 4.5 mmol/L (3.5-5.1); SODIUM SERUM 139 mmol/L (136-145); UREA NITROGEN, BLOOD 19 mg/dL (7-18)
[2019-03-17 11:54] LABS: ALANINE AMINOTRANSFERASE 18 U/L (12-78); ALBUMIN 3.1 g/dL (3.4-5.0); ALKALINE PHOSPHATASE 113 U/L (46-116); ASPARTATE AMINOTRANSFERASE 23 U/L (15-37); BILIRUBIN,DIRECT 0.4 mg/dL (0.0-0.2); BILIRUBIN,TOTAL 1.6 mg/dL (0.2-1.0)
[2019-03-17 11:56] LABS: B-TYPE NATRIURETIC PEPTIDE 7254 PG/ML (0-125)
--- NOTE | 2019-03-17 12:02 | NUR ---
TELE BED 311-1
[2019-03-17] MEDS ORDERED: ALBU18HF2 INH (12:15)
--- NOTE | 2019-03-17 12:16 | NUR ---
REPORT GIVEN TO TIMMY SIN FOR NIECY.
--- NOTE | 2019-03-17 13:45 | NUR ---
ROTATIONAL MOULDING OPERATOR NOTES PATIENT RECEIVED ALERT AND ORIENTED X3, NO RESPIRATORY DISTRESS, ON NASAL CANULA O2 AT 2L. NO C/O PAIN AT THIS TIME. PATIENT ON PUBLIC HEALTH NURSE AFIB 114, SKIN ASSESSED, NO SKIN BREAKDOWN. PHOTOS TAKEN AND PUT IN THE CHART. BELONGINGS ACCOUNTED FOR AND SIGNED. IV SL ON THE LAC #20G, INTACT AND PATENT. BED ON LOWEST LOCKED POSITION, CALL LIGHT WITHIN REACH. WILL ENDORSE TO ONCOMING NURSE.
[2019-03-17 14:00] VITALS: BP 152/86
[2019-03-17] MEDS ORDERED: Z GUARD REMEDY 2 OZ OINT TP PRN (14:30)
[2019-03-17] MEDS ORDERED: ZOLPIDEM TARTRATE 5 MG TABLET PO PRN (14:30)
[2019-03-17] MEDS ORDERED: MAG HYDROX/AL HYDROX/SIMETH 30 ML UDC PO PRN (14:30)
[2019-03-17] MEDS ORDERED: ONDANSETRON HCL/PF 4 MG/2 ML VIAL IVP PRN (14:30)
[2019-03-17] MEDS ORDERED: MAGNESIUM HYDROXIDE 30 ML UDC PO PRN (14:30)
[2019-03-17] MEDS ORDERED: HYDROCODONE/APAP 5/325MG 1 EACH TABLET PO PRN (14:30)
[2019-03-17] MEDS: ACYCLOVIR 800 MG TABLET PO SCH ×3 (15:57→20:38)
[2019-03-17] MEDS: LISINOPRIL (5MG) 5 MG TABLET PO SCH (15:57)
[2019-03-17 16:00] VITALS: BP 149/64
[2019-03-17] MEDS: TRIAMCINOLONE ACETONIDE 0.1% CR 15 GM TUBE TP SCH (17:44)
[2019-03-17] MEDS: RIVAROXABAN 10 MG TABLET PO SCH (17:46)
--- NOTE | 2019-03-17 19:00 | NUR ---
SUPERVISOR CAPACITOR PROCESSING NOTE RECEIVED PT IN STABLE CONDITION A&O X3, CURRENTLY IN BED WATCHING TV. NO SIGNS OF SOB OR DISTRESS, NO C/O PAIN. TELE MONITOR READING IS A. FIB 88. IV IN LAC IN PLACE. ALL CURRENT NEEDS ATTENDED TO. BED LOW, LOCKED, UPPER RAILS UP, AND CALL LIGHT WITHIN REACH. WILL CONT. TO MONITOR.
[2019-03-17] MEDS: ACETAMINOPHEN 325 MG TABLET PO PRN (19:52)
--- NOTE | 2019-03-17 19:52 | NUR ---
DEATH SURVEYS CODER NOTE PT REQUESTING FOR TYLENOL FOR GENERALIZED BACK PAIN 09/25. WILL CONT. TO MONITOR.
[2019-03-17 20:00] VITALS: BP 133/87
[2019-03-18] VITALS: BP 143/73
[2019-03-18] MEDS: ACETAMINOPHEN 325 MG TABLET PO PRN ×2 (02:30→19:14)
--- NOTE | 2019-03-18 02:30 | NUR ---
FATS AND OILS LOADER NOTE PT REQUESTING FOR TYLENOL FOR GENERALIZED BACK PAIN 09/25. WILL CONT. TO MONITOR.
[2019-03-18 04:00] VITALS: BP 135/78
[2019-03-18] MEDS: ACYCLOVIR 800 MG TABLET PO SCH ×6 (06:01→21:58)
--- NOTE | 2019-03-18 06:12 | NUR ---
PERIODICALS CLERK NOTE PT IN STABLE CONDITION A&O X3, CURRENTLY RESTING IN BED. NO SIGNS OF SOB OR DISTRESS, NO C/O PAIN. TELE MONITOR READING: CONTROLLED A. FIB 90. IV IN LAC IN PLACE. ALL CURRENT NEEDS ATTENDED TO. BED LOW, LOCKED, UPPER RAILS UP, AND CALL LIGHT WITHIN REACH. WILL CONT. TO MONITOR AND ENDORSE TO NEXT SHIFT FOR NIECY.
[2019-03-18 06:34] LABS: BASOPHILS % (AUTO) 0.7 % (0.0-2.0); EOSINOPHILS % (AUTO) 3.6 % (0.0-6.0); HEMATOCRIT 38 % (33-45); HEMOGLOBIN 11.9 g/dL (11.5-14.8); LYMPHOCYTES # (AUTO) 1.3 /CMM (0.8-4.8); LYMPHOCYTES % (AUTO) 20.8 % (20.0-44.0); MEAN CORPUSCULAR HGB CONC 32 g/dl (31.0-36.0); MEAN CORPUSCULAR VOLUME 90 fL (82-100); MONOCYTES # (AUTO) 0.5 /CMM (0.1-1.30); MONOCYTES % (AUTO) 7.9 % (2.0-12.0); NEUTROPHILS # (AUTO) 4.2 /CMM (1.8-8.9); PLATELET COUNT (AUTO) 211 /CMM (150-450); RED BLOOD CELL COUNT(AUTO) 4.18 MIL/uL (4.0-5.2); WHITE BLOOD COUNT (AUTO) 6.3 K/uL (4.3-11.0)
[2019-03-18 06:55] LABS: CHOLESTEROL 115 mg/dL (<200); HDL CHOLESTEROL 44 mg/dL (40-60); LDL 66 mg/dL (0-99); TRIGLYCERIDES 47 mg/dL (30-150)
[2019-03-18 07:00] LABS: CALCIUM, SERUM 9.1 mg/dL (8.5-10.1); CARBON DIOXIDE 28 mmol/L (21-32); CHLORIDE 105 mmol/L (98-107); CREATININE 0.6 mg/dL (0.6-1.3); GLUCOSE 114 mg/dL (74-106); MAGNESIUM 1.7 mg/dL (1.8-2.4); PHOSPHORUS 3.8 mg/dL (2.5-4.9); POTASSIUM 4.2 mmol/L (3.5-5.1); SODIUM SERUM 140 mmol/L (136-145); UREA NITROGEN, BLOOD 19 mg/dL (7-18)
--- NOTE | 2019-03-18 07:30 | NUR ---
CONCRETING SUPERVISOR NOTES PT IN BED, AWAKE, ALERT AND ORIENTED, NO SOB, DENIES PAIN, RESPIRATIONS NORMAL, CALL LIGHT WITHIN REACH, KEPT COMFORTABLE IN BED.
[2019-03-18 08:00] VITALS: BP 147/92
[2019-03-18] MEDS: ALBUTEROL FS 2.5 MG/3 ML VIAL.NEB NEB SCH (08:06)
--- NOTE | 2019-03-18 08:07 | NUR ---
PT REFUSED RESP TX. NO S/S OF SON NOTED ATT. WILL CONT TO MONITOR
--- NOTE | 2019-03-18 08:19 | NUR ---
PRICING ASSOCIATE NOTES PT SEEN AND EXAMINED BY DR. ALVAREZ, PLAN OF CARE DISCUSED WITH PT, VERBALIZED UNDERSTANDING, CALL LIGHT WITHIN REACH.
[2019-03-18] MEDS: Magnesium 1GM/D5W 100ML PREMIX 100 ML IV SCH ×2 (09:07→11:10)
[2019-03-18] MEDS: FUROSEMIDE 40 MG/4 ML VIAL IV SCH (09:07)
[2019-03-18] MEDS: ASPIRIN 81 MG TAB.CHEW PO SCH (09:08)
[2019-03-18] MEDS: LISINOPRIL (5MG) 5 MG TABLET PO SCH (09:08)
[2019-03-18] MEDS: DILTIAZEM HCL CD 240 MG PO SCH (09:09)
[2019-03-18] MEDS: TRIAMCINOLONE ACETONIDE 0.1% CR 15 GM TUBE TP SCH ×2 (09:09→17:09)
[2019-03-18] MEDS: DIGOXIN 0.125 MG TABLET PO SCH (12:36)
--- NOTE | 2019-03-18 13:00 | NUR ---
RN MS NOTES PT IN BED, ASLEEP, EASY TO AROUSE, ALERT AND ORIENTED, NO COMPLAINT AT THIS TIME, CALL LIGHT WITHIN REACH, ASSISTED TO BATHROOM NEEDED.
[2019-03-18] MEDS ORDERED: ALBUTEROL FS 2.5 MG/0.5 ML VIAL.NEB NEB PRN (13:30)
[2019-03-18 16:00] VITALS: BP 123/77
[2019-03-18] MEDS: RIVAROXABAN 10 MG TABLET PO SCH (16:46)
--- NOTE | 2019-03-18 18:04 | NUR ---
RN MS NOTES PT IN BED, AWAKE, ALERT AND ORIENTED, DENIES PAIN, NOT IN DISTRESS, AMBULATES TO THE BATHROOM NEEDED, WITH STEADY GAIT, TOLERATING CURRENT DIET WELL, ALL NEEDS ATTENDED.
--- NOTE | 2019-03-18 19:30 | NUR ---
RN INITIAL NOTES: RECEIVED REPORT FROM SRAVAN WARNER. PT IN THE ROOM, AWAKE, A/O X3 ON RA RESPIRATIONS EVEN AND UNLABORED. IV ACCESS PATENT AND FLUSHING WELL, ON HL. PER REPORT PT NON COMPLIANT WITH MEDS. AWARE. DISCUSSED PLAN OF CARE TONIGHT. PT STATED SHE DIDN'T EAT DINNER, PT REQUESTED FOR EGG SAND WHICH AND JUICE. SAFETY PRECAUTIONS FOR FALL INITIATED, CALL LIGHT IN REACH, WILL CONTINUE MONITORING PT.
[2019-03-18 20:00] VITALS: BP 107/60
--- NOTE | 2019-03-18 20:10 | NUR ---
RN NOTES: PT PROVIDED WITH EGG SAND WHICH, ORANGE JUICE, NEW GOWN, MESH AND DIAPER PER PT'S REQUEST
--- NOTE | 2019-03-18 21:08 | NUR ---
RN NOTES: PT REFUSED TAKING ACYCLOVIR, STATED SHE TOOK A DOSE THIS AFTERNOON AT 0500PM. INFORMED PT THAT ITS SCHEDULED FOR 5X A DAY. PT REFUSED THE DOSE FOR 1800. SHE CLAIMED NEXT DOSE WILL BE FOR TOMORROW. EDUCATION PROVIDED TO PT.
[2019-03-19] MEDS: ACETAMINOPHEN 325 MG TABLET PO PRN ×4 (01:15→21:55)
--- NOTE | 2019-03-19 01:16 | NUR ---
PRN TYLENOL: PT REQUESTED FOR TYLENOL FOR BACK PAIN, OFFERED NORCO BUT PT REFUSED, STATED ONLY TYLENOL WORKS FOR HER PAIN. PRN TYLENOL 650 MG TAB PO ADMINISTERED AT THIS TIME. WILL CONTINUE TO MONITOR AND REASSESS
--- NOTE | 2019-03-19 03:00 | NUR ---
rn notes: seen sleeping at this time. appears comfortable
--- NOTE | 2019-03-19 06:42 | NUR ---
RN CLOSING NOTES: PT IN BED, AWAKE, REMAINS ON RA RESPIRATIONS EVEN AND UNLABORED. IV ACCESS REMAINS PATENT AND FLUSHING WELL, ON HL. VS REMAINS STABLE, NEEDS ATTENDED. SAFETY PRECAUTIONS FOR FALL REMAINS ENGAGED, CALL LIGHT IN REACH, WILL ENDORSE TO DAY RN FOR CONTINUITY OF CARE.
[2019-03-19] MEDS: ACYCLOVIR 800 MG TABLET PO SCH ×5 (07:00→21:55)
--- NOTE | 2019-03-19 07:14 | NUR ---
PRN TYLENOL: PT C/O BACK PAIN REQUESTING FOR TYLENOL, PRN TYLENOL 650 MG TAB PO ADMINISTERED TO PT AT THIS TIME. WILL CONTINUE TO MONITOR AND REASSESS
[2019-03-19 07:19] LABS: BASOPHILS % (AUTO) 0.5 % (0.0-2.0); EOSINOPHILS % (AUTO) 3.5 % (0.0-6.0); HEMATOCRIT 40 % (33-45); HEMOGLOBIN 12.8 g/dL (11.5-14.8); LYMPHOCYTES # (AUTO) 1.3 /CMM (0.8-4.8); MEAN CORPUSCULAR HGB CONC 32 g/dl (31.0-36.0); MEAN CORPUSCULAR VOLUME 89 fL (82-100); MONOCYTES # (AUTO) 0.6 /CMM (0.1-1.30); MONOCYTES % (AUTO) 8.3 % (2.0-12.0); NEUTROPHILS # (AUTO) 4.6 /CMM (1.8-8.9); NEUTROPHILS % (AUTO) 67.7 % (43.0-81.0); PLATELET COUNT (AUTO) 234 /CMM (150-450); RED BLOOD CELL COUNT(AUTO) 4.53 MIL/uL (4.0-5.2); WHITE BLOOD COUNT (AUTO) 6.8 K/uL (4.3-11.0)
[2019-03-19 07:26] LABS: CALCIUM, SERUM 9.6 mg/dL (8.5-10.1); CARBON DIOXIDE 31 mmol/L (21-32); CHLORIDE 103 mmol/L (98-107); CREATININE 0.6 mg/dL (0.6-1.3); GLUCOSE 140 mg/dL (74-106); MAGNESIUM 2.1 mg/dL (1.8-2.4); POTASSIUM 3.9 mmol/L (3.5-5.1); SODIUM SERUM 138 mmol/L (136-145); UREA NITROGEN, BLOOD 18 mg/dL (7-18)
[2019-03-19] MEDS: ALBUTEROL FS 2.5 MG/3 ML VIAL.NEB NEB SCH (07:27)
--- NOTE | 2019-03-19 07:27 | NUR ---
RN MS NOTES PT IN BED, AWAKE, ALERT AND ORIENTED, NO COMPLAINT AT THIS TIME, NOT IN DISTRESS, SEEN AND EXAMINED BY DR. ALVAREZ, PLAN OF CARE DISCUSSED WITH PT, VERBALIZED UNDERSTANDING, CALL LIGHT WITHIN REACH, KEPT COMFORTABLE IN BED.
[2019-03-19 08:12] VITALS: BP 125/88
[2019-03-19] MEDS: DILTIAZEM HCL CD 240 MG PO SCH (08:13)
[2019-03-19] MEDS: FUROSEMIDE 40 MG/4 ML VIAL IV SCH (08:14)
[2019-03-19] MEDS: LISINOPRIL (5MG) 5 MG TABLET PO SCH (08:14)
[2019-03-19] MEDS: ASPIRIN 81 MG TAB.CHEW PO SCH (08:14)
[2019-03-19] MEDS: TRIAMCINOLONE ACETONIDE 0.1% CR 15 GM TUBE TP SCH ×2 (08:15→16:41)
--- NOTE | 2019-03-19 13:00 | NUR ---
RN MS NOTES PT IN BED, SLEEPS INTERMITTENTLY, EASY TO AROUSE, NO COMPLAINT AT THIS TIME, NO SOB, RESPIRATIONS NORMAL, TOLERATING ROOM AIR WELL, NEEDS ATTENDED.
[2019-03-19 14:27] VITALS: BP 127/82
[2019-03-19] MEDS: DIGOXIN 0.125 MG TABLET PO SCH (14:27)
[2019-03-19] MEDS: RIVAROXABAN 10 MG TABLET PO SCH (17:23)
--- NOTE | 2019-03-19 18:34 | NUR ---
RN MS NOTES PT AWAKE, WALKING INSIDE HER ROOM, DENIES PAIN, NOT IN DISTRESS, NON COMPLIANT WITH SOME MEDICATIONS, MD AWARE, CALL LIGHT WITHIN REACH, NEEDS ATTENDED.
--- NOTE | 2019-03-19 19:15 | NUR ---
RN MS OPENING NOTES BEDSIDE REPORT RECIEVED FROM MARY WARNER. PT IN BED, AWAKE, ALERT AND ORIENTED, NO COMPLAINT AT THIS TIME, NO APPARENT DISTRESS PLAN OF CARE REVIEWED WITH PT, VERBALIZED UNDERSTANDING, CALL LIGHT WITHIN REACH, BED DOWN AND LOCKED VERBALIZED UNDERSTANDING TO CALL FOR ASSISTANCE NEEDED.
[2019-03-19 20:00] VITALS: BP 128/77
--- NOTE | 2019-03-19 21:55 | NUR ---
tyelenol prn patient c/o head ache 10/23. requesting tyelenol. tyelnol administered as ordered.
[2019-03-20 06:17] LABS: BASOPHILS % (AUTO) 0.8 % (0.0-2.0); EOSINOPHILS % (AUTO) 4.2 % (0.0-6.0); HEMATOCRIT 37 % (33-45); HEMOGLOBIN 11.8 g/dL (11.5-14.8); LYMPHOCYTES # (AUTO) 1.3 /CMM (0.8-4.8); LYMPHOCYTES % (AUTO) 21.4 % (20.0-44.0); MEAN CORPUSCULAR HGB CONC 32 g/dl (31.0-36.0); MEAN CORPUSCULAR VOLUME 89 fL (82-100); MONOCYTES # (AUTO) 0.7 /CMM (0.1-1.30); NEUTROPHILS # (AUTO) 3.7 /CMM (1.8-8.9); NEUTROPHILS % (AUTO) 62.6 % (43.0-81.0); PLATELET COUNT (AUTO) 229 /CMM (150-450); RED BLOOD CELL COUNT(AUTO) 4.17 MIL/uL (4.0-5.2); WHITE BLOOD COUNT (AUTO) 5.9 K/uL (4.3-11.0)
--- NOTE | 2019-03-20 06:30 | NUR ---
RN MS PM CLOSING NOTE PT IN BED, AWAKE, ALERT AND ORIENTED, NO COMPLAINT AT THIS TIME, NO APPARENT DISTRESS CALL LIGHT WITHIN REACH, BED DOWN AND LOCKED VERBALIZED UNDERSTANDING TO CALL FOR ASSISTANCE NEEDED. ASKING FOR SNACK APPLESAUC GIVEN . REVIEWED PLAN FOR THE DAY.
[2019-03-20 06:35] LABS: CALCIUM, SERUM 9.5 mg/dL (8.5-10.1); CARBON DIOXIDE 26 mmol/L (21-32); CHLORIDE 105 mmol/L (98-107); CREATININE 0.6 mg/dL (0.6-1.3); GLUCOSE 109 mg/dL (74-106); POTASSIUM 4.2 mmol/L (3.5-5.1); SODIUM SERUM 138 mmol/L (136-145); UREA NITROGEN, BLOOD 19 mg/dL (7-18)
[2019-03-20] MEDS: ACYCLOVIR 800 MG TABLET PO SCH ×5 (07:02→20:59)
--- NOTE | 2019-03-20 07:38 | NUR ---
MS RN NOTES RECEIVED PATIENT IN BED AWAKE, RESTING COMFORTABLY. DENIES ANY C/O SOB NOR PAIN NOR DISCOMFORT. BED IN LOWEST POSITION. CALL LIGHT WITHIN REACH. ABLE TO VERBALIZE NEEDS. LEFT FA # 20 INTACT AND PATENT.
[2019-03-20 08:00] VITALS: BP 130/52
[2019-03-20] MEDS: ALBUTEROL FS 2.5 MG/3 ML VIAL.NEB NEB SCH (08:20)
[2019-03-20] MEDS: ASPIRIN 81 MG TAB.CHEW PO SCH (09:22)
[2019-03-20] MEDS: DILTIAZEM HCL CD 240 MG PO SCH (09:23)
[2019-03-20] MEDS: TRIAMCINOLONE ACETONIDE 0.1% CR 15 GM TUBE TP SCH ×2 (09:24→17:26)
[2019-03-20] MEDS: LISINOPRIL (5MG) 5 MG TABLET PO SCH (09:24)
[2019-03-20] MEDS: FUROSEMIDE 40 MG/4 ML VIAL IV SCH (09:25)
[2019-03-20] MEDS ORDERED: diphenhydrAMINE HCL/ZINC ACET CREAM 28.3 GM TUBE TP PRN (12:30)
[2019-03-20] MEDS ORDERED: NEOMY SULF/BACITRAC ZN/POLY 15 GM TUBE TP PRN (12:30)
[2019-03-20] MEDS: DIGOXIN 0.125 MG TABLET PO SCH (13:49)
[2019-03-20 16:00] VITALS: BP 133/86
[2019-03-20] MEDS: ACETAMINOPHEN 325 MG TABLET PO PRN (17:24)
[2019-03-20] MEDS: RIVAROXABAN 10 MG TABLET PO SCH (17:25)
--- NOTE | 2019-03-20 19:50 | NUR ---
MS RN CLOSING NOTES PATIENT ALERT AND ORIENTEDX4. DENIES ANY C/O PAIN NOR DISCOMFORT. NO S/S OF RESPIRATORY DISTRESS DURING THE SHIFT. REFUSED BREATHING TREATMENT FROM RT DESPITE EDUCATION AND RISKS PROVIDED. LEFT FA #20 INTACT AND PATENT. NO S/S OF COMPLICATIONS TO IV SITE. BLE SWELLING STILL NOTED. REMINDED PATIENT TO ELEVATE FEET WITH PILLOW. PATIENT AMBULATES ALONG UNIT AND ROOM WITH STEADY GAIT. PATIENT WITH SEVERAL CONCERNS NOTED DURING THE SHIFT. PATIENT WANTS TO GO TO THE [place], VENDING MACHINE, MATT MACHINE AND WANTS PARTICULAR DRESSINGS FOR SALAD. IF NOT ATTENDED TO PATIENT STATES, "I WILL GET MAD!" EDUCATED PATIENT REGARDING DIET, DESPITE EDUCATION GIVEN, PATIENT REFUSED TO LISTEN. PATIENT HAD CERTAIN DEMANDS AND IF NOT MET PER PATIENT SHE WILL GET MAD UNTIL SHE GETS IT. PATIENT IN NO APPARENT DISTRESS. ENDORSED TO ONCOMING SHIFT.
--- NOTE | 2019-03-20 19:56 | NUR ---
RN OPENING NOTES PATIENT RESTING IN BED, COMFORTABLY. ASLEEP AT THIS TIME. NO SIGNS OF RESPIRATORY DISTRESS. NO SIGNS OF SHORTNESS OF BREATH. NO SIGNS OF FACIAL GRIMACING INDICATING PAIN OR DISCOMFORT AT THIS TIME. IV SITE: LFA #20 INTACT AND PATENT. NO S/S OF COMPLICATIONS TO IV SITE. SAFETY PRECAUTIONS IMPLEMENTED; CALL LIGHT WITHIN REACH, BED LOW, BED LOCKED, SIDE RAILS UP X2. WILL CONTINUE TO MONITOR PATIENT.
[2019-03-20 20:03] VITALS: BP 98/68
--- NOTE | 2019-03-20 20:35 | NUR ---
RN NOTES PATIENT WALKING AROUND THE ROOM. PATIENT REFUSES OXYGEN TO BE ADMINISTERED AT THIS TIME. LAST O2 SATURATION READING WAS 92%. NO RESPIRATORY DISTRESS NOTED WITH ACTIVITY FROM WALKING. DENIES SHORTNESS OF BREATH. WILL CONTINUE TO MONITOR PATIENT.
--- NOTE | 2019-03-20 21:05 | NUR ---
RN NOTES PATIENT REFUSED ACYCLOVIR FOR 2099. EDUCATED PATIENT ABOUT THE RISKS AND BENEFITS OF MEDICATION. PATIENT AGGRESSIVELY REFUSES. WILL CONTINUE TO MONITOR.
--- NOTE | 2019-03-20 21:10 | NUR ---
RN NOTES PATIENT HAS NO CURRENT COMPLAINTS AT THIS TIME. PATIENT NOT REQUESTING ANYTHING AT THIS TIME. PATIENT JUST WALKING AROUND THE ROOM. WILL CONTINUE TO MONITOR.
--- NOTE | 2019-03-20 22:05 | NUR ---
RN NOTES PATIENT REFUSES TO HAVE WOUND/SKIN CARE DONE FROM ME. PATIENT DOES NOT WANT THE MEDICATION APPLIED ON HER SKIN. INFORMED PATIENT TO LET ME KNOW IF SHE HAS ANY NEEDS TO BE ADDRESSED, SUCH MEDICATION, WOUND/SKIN CARE DONE, OXYGEN, ETC. PATIENT IS WELL AWARE TO STATE HER NEEDS NEEDED. WILL CONTINUE TO MONITOR.
[2019-03-21] MEDS: ACETAMINOPHEN 325 MG TABLET PO PRN (01:21)
--- NOTE | 2019-03-21 01:25 | NUR ---
RN NOTES BRADFORD, LOOP TENDER/TECH, CALLED ME TO SAY PATIENT WAS REQUESTING TYLENOL FOR BACK PAIN 10/23. I PULLED OUT MEDICATION FROM [email or web address] TO GIVE TO PATIENT. I KNOCKED AND ENTERED, GREETED MYSELF CORDIALLY BEFORE ENTERING TO WAKE PATIENT UP. PATIENT THEN REFUSES TO TAKE THE TYLENOL FROM ME AFTER I PREPARED AT BED SIDE. PATIENT WAS HOSTILE AND SAID TO "GET OUT, I DO NOT WANT YOU IN MY ROOM AGAIN" I INFORMED CHARGE NURSE, DEEP ALANIZ, ABOUT THE REFUSAL AND SITUATION. CHARGE NURSE, DEEP ALANIZ, ADMINISTERED THE TYLENOL 650 MG. PATIENT TOOK MEDICATION DIRECTED. CHARGE NURSE, DEEP ALANIZ, INFORMED ABOUT THE SITUATION.
--- NOTE | 2019-03-21 06:46 | NUR ---
RN CLOSING NOTES PATIENT IN BED, AWAKE, REMAINS ON RA. NO SIGNS OF RESPIRATORY DISTRESS. RESPIRATIONS EVEN AND UNLABORED. IV ACCESS REMAINS PATENT AND FLUSHING WELL, HEPLOCKED. PATIENT IS STABLE. NO COMPLAINTS AT THIS TIME. ALL NEEDS ATTENDED TO THROUGHOUT THE SHIFT. SAFETY PRECAUTIONS IMPLEMENTED; CALL LIGHT WITHIN REACH, BED LOWEST POSITION, BED LOCKED, SIDE RAILS UP X2. PATIENT ABLE TO AMBULATE WITH STEADY GAIT. ALL BELONGINGS AT BED SIDE. PATIENT REFUSED MOST OF MY CARE. NO HARM IN ANY WAY WAS DONE TO THE PATIENT ON MY PART. CHARGE NURSE, DEEP ALANIZ, AWARE. WILL ENDORSE TO DAY RN FOR CONTINUITY OF CARE.
--- NOTE | 2019-03-21 07:04 | NUR ---
WOUND CARE CONSULT WOUND CARE RECEIVED CONSULT FOR RASHES ON LOWER BACK. WOUND CARE WILL DEFER CONSULT AND TREATMENT PLANS TO PLASTIC SURGICAL TEAM WHO ARE CURRENTLY FOLLOWING. PATIENT WITH SIMEON AT 18, ALL PRESSURE ULCER PREVENTION MEASURES ARE NOTED TO BE IN PLACE. WILL SEE PRN.
--- NOTE | 2019-03-21 07:35 | NUR ---
MS RN OPENING NOTES RECEIVED PT SITTING UP IN BED, AWAKE. A/O X4, AFEBRILE. RESPIRATIONS ARE EVEN AND UNLABORED, NOT IN ANY ACUTE DISTRESS NOTED. NO C/O PAIN, SOB, N/V. IV ACCESS TO LAC INTACT, NO INFILTRATION NOTED. DRESSING KEPT CLEAN AND DRY. SAFETY MEASURES ARE IN PLACE. INSTRUCTED PT TO USE CALL LIGHT WHEN ASSISTANCE IS NEEDED, CALL LIGHT IS LEFT WITHIN REACH. WILL MONITOR THROUGHOUT SHIFT FOR CONTINUITY OF CARE.
[2019-03-21 08:00] VITALS: BP 125/85
[2019-03-21] MEDS: LISINOPRIL (5MG) 5 MG TABLET PO SCH (08:27)
[2019-03-21] MEDS: FUROSEMIDE 40 MG/4 ML VIAL IV SCH (08:27)
[2019-03-21] MEDS: ACYCLOVIR 800 MG TABLET PO SCH ×4 (08:27→18:16)
[2019-03-21] MEDS: ASPIRIN 81 MG TAB.CHEW PO SCH (08:27)
[2019-03-21] MEDS: DILTIAZEM HCL CD 240 MG PO SCH (08:28)
--- NOTE | 2019-03-21 08:30 | NUR ---
MS RN NOTES-- PT WAS SEEN AND EXAMINED BY DR. COBOS.
[2019-03-21] MEDS: TRIAMCINOLONE ACETONIDE 0.1% CR 15 GM TUBE TP SCH ×2 (08:32→17:00)
[2019-03-21] MEDS: ALBUTEROL FS 2.5 MG/3 ML VIAL.NEB NEB SCH (09:09)
[2019-03-21] MEDS: IPRATROPIUM NEB FS 0.5 MG/2.5 ML AMPUL.NEB IH SCH ×2 (10:30→13:30)
[2019-03-21] MEDS ORDERED: ALBUTEROL FS 2.5 MG/0.5 ML VIAL.NEB NEB PRN (10:30)
--- NOTE | 2019-03-21 11:44 | NUR ---
MS RN NOTES-- PT AGREED TO BE DISCHARGED TO TODAY. CM NOTIFIED FOR TRANSPORTATION.
[2019-03-21] MEDS: DIGOXIN 0.125 MG TABLET PO SCH (12:14)
[2019-03-21] MEDS: FUROSEMIDE 100 MG/10 ML VIAL IV SCH ×3 (12:14→18:00)
--- NOTE | 2019-03-21 14:17 | NUR ---
MS RN NOTES-- PT REFUSED SCHEDULED LASIX. PT STATES "I DONT NEED IT." EXPLAINED THE IMPORTANCE OF LASIX X3, PT STILL NOTED WITH NONCOMPLIANCE AND REFUSED. WILL CONTINUE TO MONITOR.
[2019-03-21 16:00] VITALS: BP 121/62
[2019-03-21] MEDS: RIVAROXABAN 10 MG TABLET PO SCH (16:21)
--- NOTE | 2019-03-21 18:33 | NUR ---
MS RN NOTES-- PT REFUSED SCHEDULED LASIX. EXPLAINED THE RISKS AND BENEFITS X3, PT STILL NOTED WITH NONCOMPLIANCE. PT STATED "NO, I AM STILL PEEING A LOT. I DONT NEED THAT." EXPLAINED AGAIN THE IMPORTANCE, PT STILL REFUSED.
--- NOTE | 2019-03-21 19:15 | NUR ---
MS COMMUNICATION EQUIPMENT REPAIRER NOTE PT DISCHARGED TO HOME IN MEDICALLY STABLE CONDITION VIA GURNEY ACCOMPANIED BY EMT PERSONNEL. PT IS A/O X4, AFEBRILE. RESPIRATIONS ARE EVEN AND UNLABORED, NOT IN ANY ACUTE DISTRESS NOTED. PT DENIES ANY PAIN, SOB, N/V. PUPILS ARE REACTIVE TO LIGHT, BILATERAL HAND CLOTH LAMINATING SUPERVISOR ARE STRONG AND EQUAL. ABDOMEN IS SOFT AND NONDISTENDED, BOWEL SOUNDS ARE PRESENT IN ALL 4 QUADRANTS UPON AUSCULTATION. DENIES ANY BLADDER DISCOMFORT. IV ACCESS REMOVED, APPLIED PRESSURE AND TOLERATED WELL. ID BANDS REMOVED. SKIN IS INTACT, KEPT CLEAN AND DRY. NO OPEN AREAS NOTED. EXPLAINED DISCHARGE PAPERWORK TO PT WITH VERBAL AND WRITTEN UNDERSTANDING. ALL BELONGINGS ACCOUNTED FOR AND SENT WITH PT. PT LEFT IN STABLE CONDITION.
[2019-03-22] MEDS ORDERED: ALBUTEROL FS 2.5 MG/3 ML VIAL.NEB NEB SCH (09:00)
== END 2019-03-21 19:25 | disposition home or self-care (01) | DRG 292 ==
LOC: ER 10:53 → TELE 12:04 → MED 03-18 09:21
PROVIDERS: ADMIT Family Medicine; ATTEND Internal Medicine
DX: I11.0 Hypertensive heart disease with heart failure (principal); E44.1 Mild protein-calorie malnutrition; I50.23 Acute on chronic systolic (congestive) heart failure; E11.65 Type 2 diabetes mellitus with hyperglycemia; J44.9 Chronic obstructive pulmonary disease, unspecified; I48.91 Unspecified atrial fibrillation; E83.42 Hypomagnesemia; Z91.19 Patient's noncompliance with other medical treatment and regimen; Z91.14 Patient's other noncompliance with medication regimen; Z90.710 Acquired absence of both cervix and uterus; Z87.891 Personal history of nicotine dependence; Z79.899 Other long term (current) drug therapy; Z79.82 Long term (current) use of aspirin; Z79.01 Long term (current) use of anticoagulants; K21.9 Gastro-esophageal reflux disease without esophagitis; Z79.51 Long term (current) use of inhaled steroids; F29 Unspecified psychosis not due to a substance or known physiological condition; Z86.19 Personal history of other infectious and parasitic diseases; S61.212A Laceration without foreign body of right middle finger without damage to nail, initial encounter; X58.XXXA Exposure to other specified factors, initial encounter; Y92.9 Unspecified place or not applicable; R79.89 Other specified abnormal findings of blood chemistry
CPT/HCPCS: 36415; 71045-TC; 80048-TC; 80061-TC; 80076-TC; 80162-TC; 83735-TC; 83880; 84100-TC; 84484-TC; 85025-TC; 85730-TC; 87081-TC; 97116-TC; 97530-TC; A6403; G0378; J1940; J3475; J7050